=== PATIENT | female | born 1950 | race Hispanic/Latino ===

== ENCOUNTER → 2018-10-03 | Outpatient (CLI) | payer OTHER | END | disposition home or self-care (01) | LOC: RAH 08:15 | PROVIDERS: ATTEND Family Medicine | DX: Z12.31 Encounter for screening mammogram for malignant neoplasm of breast (principal); Z87.891 Personal history of nicotine dependence | CPT/HCPCS: 77067 ==

== ENCOUNTER → 2019-10-07 | Outpatient (CLI) | payer OTHER | END | disposition home or self-care (01) | LOC: RAH 14:05 | PROVIDERS: ATTEND Family Medicine | DX: Z12.31 Encounter for screening mammogram for malignant neoplasm of breast (principal) | CPT/HCPCS: 77067 ==

== ENCOUNTER → 2020-11-09 | Outpatient (CLI) | payer OTHER | END | disposition home or self-care (01) | LOC: RAH 15:34 | PROVIDERS: ATTEND Family Medicine | DX: Z12.31 Encounter for screening mammogram for malignant neoplasm of breast (principal); N64.89 Other specified disorders of breast | CPT/HCPCS: 77067 ==

== ENCOUNTER 2020-12-20 05:45 | Inpatient (IN) | payer OTHER ==
[~2020-12-20] VITALS: Ht 162.6 cm; Wt 104.8 kg
[2020-12-20 06:10] LABS: BASOPHILS % (AUTO) 0.4 % (0.0-5.0); EOSINOPHILS % (AUTO) 0.9 % (0.0-8.0); HEMATOCRIT 40.5 % (36-48); LYMPHOCYTES % (AUTO) 20.8 % (21.0-51.0); MEAN CORPUSCULAR HEMOGLOBIN 28.8 pg (27.0-33.0); MEAN CORPUSCULAR HGB CONC 32.1 g/dL (32.0-36.0); MEAN CORPUSCULAR VOLUME 89.8 fL (79-99); MONOCYTES % (AUTO) 7.9 % (3.0-13.0); NEUTROPHILS % (AUTO) 69.7 % (40.0-77.0); PLATELET COUNT (AUTO) 227 K/uL (130-400); RED BLOOD CELL COUNT(AUTO) 4.51 MIL/uL (4.00-5.50); RED CELL DISTRIBUTION WIDTH 13.8 % (11.0-15.5); WHITE BLOOD COUNT (AUTO) 10.5 K/uL (4.8-10.8)
[2020-12-20 06:11] LABS: APPEARANCE,URINE Clear (CLEAR); BILIRUBIN,URINE Negative (NEGATIVE); COLOR,URINE Yellow (YELLOW); GLUCOSE, URINE (UA) >=1000 mg/dL (NEGATIVE); KETONES,URINE Negative (NEGATIVE); LEUKOCYTE ESTERASE ,URINE Negative (NEGATIVE); NITRATE,URINE Negative (NEGATIVE); OCCULT BLOOD,URINE Negative (NEGATIVE); PROTEIN,URINE POS 1+ mg/dL (NEGATIVE); UROBILINOGEN,URINE 0.2 mg/dL (0.2-1.0)
[2020-12-20 06:12] LABS: BACTERIA,URINE None Seen /HPF (None Seen); RBC,URINE None Seen /HPF (0-1); SQUAMOUS EPITHELIAL CELL,UR Moderate /HPF (0-2); WBC,URINE 0-1 /HPF (0-1)
[2020-12-20 06:13] LABS: MUCUS,URINE Few LPF (None Seen)
[2020-12-20 06:37] LABS: ALBUMIN 4.5 g/dL (3.5-5.0); BILIRUBIN,TOTAL 0.7 mg/dL (0.2-1.0); CREATININE 1.1 mg/dL (0.5-1.5); TOTAL PROTEIN, SERUM 8.9 g/dL (6.0-8.3)
[2020-12-20] MEDS ORDERED: GLUCAGON 1MG KIT 1 MG ML IM PRN (08:15)
[2020-12-20] MEDS ORDERED: LIDOCAINE HCL-MPF 1% 2ML VIAL IV PRN ×2 (08:15)
[2020-12-20] MEDS ORDERED: DEXTROSE 50%-WATER 50 ML DISP.SYRIN IV PRN (08:15)
[2020-12-20] MEDS ORDERED: ACETAMINOPHEN 325 MG TAB PO PRN (08:15)
[2020-12-20] MEDS ORDERED: MAGNESIUM 2GM PREMIX 50ML 50 ML IV PRN (08:15)
[2020-12-20] MEDS ORDERED: POTASSIUM CHLORIDE 10% ELIXIR 20 MEQ/15 ML UDCUP PO PRN (08:15)
[2020-12-20] MEDS ORDERED: ONDANSETRON HCL 4 MG/2 ML VIAL IVP PRN (08:15)
[2020-12-20] MEDS ORDERED: POTASSIUM CHLORIDE 20MEQ/100ML 100 ML IV PRN ×2 (08:15)
[2020-12-20] MEDS ORDERED: PANTOPRAZOLE SODIUM 40 MG TABLET.DR ONE (08:37)
[2020-12-20] MEDS ORDERED: ASPIRIN 81MG TAB.CHEW ONE (08:38)
[2020-12-20] MEDS ORDERED: ENOXAPARIN SODIUM 40 MG/0.4 ML SYRINGE SQ ONE (08:38)
[2020-12-20] MEDS ORDERED: NITROGLYCERIN 1GM/1 INCH PACKET TD ONE ×2 (08:39→16:41)
[2020-12-20 08:51] LABS: HEMOGLOBIN A1C 7.7 % (4.0-6.0)
[2020-12-20 08:58] LABS: THYROID STIMULATING HORMONE 2.47 uIU/mL (0.36-3.74)
[2020-12-20 10:34] LABS: INR 1.04 (0.85-1.15); PROTHROMBIN TIME 11.3 SEC (9.6-11.6)
[2020-12-20 11:39] LABS: APPEARANCE,URINE Clear (CLEAR); BILIRUBIN,URINE Negative (NEGATIVE); COLOR,URINE Yellow (YELLOW); GLUCOSE, URINE (UA) >=1000 mg/dL (NEGATIVE); KETONES,URINE Negative (NEGATIVE); LEUKOCYTE ESTERASE ,URINE Negative (NEGATIVE); NITRATE,URINE Negative (NEGATIVE); OCCULT BLOOD,URINE Negative (NEGATIVE); PROTEIN,URINE POS 1+ mg/dL (NEGATIVE)
[2020-12-20 11:48] LABS: BACTERIA,URINE Few /HPF (None Seen); RBC,URINE 0-1 /HPF (0-1); WBC,URINE None Seen /HPF (0-1)
[2020-12-20 11:49] LABS: SQUAMOUS EPITHELIAL CELL,UR Few /HPF (0-2); YEAST,URINE BUDDING Rare /HPF (None Seen)
[2020-12-20] MEDS ORDERED: IOHEXOL-350 75 ML VIAL IV ONE (16:00)
[2020-12-20] MEDS ORDERED: SODIUM CHLORIDE 0.9% 1000ML 1,000 ML IV ONE (18:17)
[2020-12-20 23:14] VITALS: BP 156/61
[2020-12-20] MEDS ORDERED: NITR0.4T50 SL (23:37)
[2020-12-20] MEDS ORDERED: AMLODIPINE PO (23:37)
[2020-12-20] MEDS ORDERED: [UNRECOGNIZED DRUG - OTHER] PO (23:37)
[2020-12-20] MEDS ORDERED: CLON1PAT14 TD (23:37)
[2020-12-20] MEDS ORDERED: INSU100I26 SQ (23:37)
[2020-12-20] MEDS ORDERED: DULA1.5P SQ (23:37)
[2020-12-20] MEDS ORDERED: HYDR100T27 PO (23:37)
[2020-12-20] MEDS ORDERED: CLON0.1T PO (23:37)
[2020-12-20] MEDS ORDERED: METO-409 PO (23:37)
[2020-12-20] MEDS ORDERED: EMPA1TAB9 PO (23:37)
[2020-12-21] MEDS: LOSARTAN 50 MG TABLET PO SCH ×2 (00:15→08:17)
[2020-12-21] MEDS: NITROGLYCERIN 1GM/1 INCH PACKET TD SCH ×2 (00:55→08:18)
[2020-12-21] MEDS: SODIUM CHLORIDE 0.9% 1000ML 1,000 ML IV SCH ×2 (00:56→11:50)
[2020-12-21 03:59] VITALS: BP 148/57
[2020-12-21 04:56] LABS: POTASSIUM 3.7 mmol/L (3.5-5.1)
[2020-12-21] MEDS: INSULIN HUMULIN R 100 UNIT/ML 3ML SQ SCH ×4 (06:48→20:32)
[2020-12-21] MEDS: ISOSORBIDE MONO 30MG TAB SR PO SCH (08:17)
[2020-12-21] MEDS: ASPIRIN 81 MG EC TAB PO SCH ×2 (08:17→09:01)
[2020-12-21] MEDS: PANTOPRAZOLE SODIUM 40 MG TABLET.DR PO SCH ×2 (08:17→09:01)
[2020-12-21] MEDS: NIFEDIPINE ER 30 MG TAB PO SCH (08:18)
[2020-12-21] MEDS: ENOXAPARIN SODIUM 40 MG/0.4 ML SYRINGE SQ SCH ×2 (08:19→09:01)
[2020-12-21] MEDS ORDERED: METOPROLOL SUCCINATE 50 MG TAB.SR.24H PO SCH (09:00)
[2020-12-21] MEDS ORDERED: HYDROCHLOROTHIAZIDE 25 MG TABLET PO SCH (09:15)
[2020-12-21] MEDS ORDERED: CLONIDINE 0.3 MG/ 24 HR PATCH TD SCH (09:15)
[2020-12-21 09:23] VITALS: BP 167/60
[2020-12-21] MEDS: LISINOPRIL 40 MG TABLET PO SCH (09:37)
[2020-12-21] MEDS: AMLODIPINE BESYLATE 5 MG TAB PO SCH (09:37)
[2020-12-21] MEDS: CLOPIDOGREL BISULFATE 75 MG TAB PO SCH (09:38)
[2020-12-21 12:04] VITALS: BP 176/69
[2020-12-21 16:29] VITALS: BP 141/41
[2020-12-21] MEDS: ATORVASTATIN CALCIUM 20 MG TABLET PO SCH (20:32)
[2020-12-21 20:40] VITALS: BP 178/61
[2020-12-22] VITALS (8 sets, daily range): BP systolic 142–190; BP diastolic 58–80
[2020-12-22] MEDS ORDERED: HYDRALAZINE HCL 20 MG/ML VIAL IV SCH (01:30)
[2020-12-22] MEDS ORDERED: HYDRALAZINE HCL 20 MG/ML VIAL ONE (01:35)
[2020-12-22 03:48] LABS: BASOPHILS % (AUTO) 0.3 % (0.0-5.0); EOSINOPHILS % (AUTO) 1.4 % (0.0-8.0); HEMATOCRIT 36.8 % (36-48); MEAN CORPUSCULAR HEMOGLOBIN 29.2 pg (27.0-33.0); MEAN CORPUSCULAR HGB CONC 32.6 g/dL (32.0-36.0); MEAN CORPUSCULAR VOLUME 89.5 fL (79-99); MONOCYTES % (AUTO) 7.1 % (3.0-13.0); PLATELET COUNT (AUTO) 150 K/uL (130-400); RED BLOOD CELL COUNT(AUTO) 4.11 MIL/uL (4.00-5.50); RED CELL DISTRIBUTION WIDTH 13.7 % (11.0-15.5); WHITE BLOOD COUNT (AUTO) 6.5 K/uL (4.8-10.8)
[2020-12-22 04:08] LABS: CREATININE 1.2 mg/dL (0.5-1.5); POTASSIUM 3.8 mmol/L (3.5-5.1)
[2020-12-22] MEDS: INSULIN HUMULIN R 100 UNIT/ML 3ML SQ SCH ×4 (05:59→20:58)
[2020-12-22] MEDS: POTASSIUM CHLORIDE 20 MEQ ERTAB PO PRN ×2 (06:00→08:55)
[2020-12-22] MEDS: ENOXAPARIN SODIUM 40 MG/0.4 ML SYRINGE SQ SCH (08:54)
[2020-12-22] MEDS: PANTOPRAZOLE SODIUM 40 MG TABLET.DR PO SCH (08:55)
[2020-12-22] MEDS: ASPIRIN 81 MG EC TAB PO SCH (08:55)
[2020-12-22] MEDS: NIFEDIPINE ER 30 MG TAB PO SCH (08:55)
[2020-12-22] MEDS: LISINOPRIL 40 MG TABLET PO SCH (08:55)
[2020-12-22] MEDS: CLOPIDOGREL BISULFATE 75 MG TAB PO SCH (08:56)
[2020-12-22] MEDS: HYDROCHLOROTHIAZIDE 25 MG TABLET PO SCH (08:56)
[2020-12-22] MEDS: CARVEDILOL 6.25 MG TABLET PO SCH ×2 (08:57→20:16)
[2020-12-22] MEDS: AMLODIPINE BESYLATE 5 MG TAB PO SCH (08:57)
[2020-12-22] MEDS: ISOSORBIDE MONO 30MG TAB SR PO SCH (08:57)
[2020-12-22] MEDS ORDERED: ISOSORBIDE MONO 30MG TAB SR PO SCH (11:30)
[2020-12-22] MEDS: HYDRALAZINE HCL 25 MG TABLET PO SCH ×2 (13:31→20:16)
[2020-12-22] MEDS: ATORVASTATIN CALCIUM 20 MG TABLET PO SCH (20:15)
[2020-12-23 04:19] VITALS: BP 142/64
[2020-12-23] MEDS: INSULIN HUMULIN R 100 UNIT/ML 3ML SQ SCH ×2 (06:33→11:39)
[2020-12-23 06:39] LABS: MEAN CORPUSCULAR HEMOGLOBIN 28.1 pg (27.0-33.0); MEAN CORPUSCULAR HGB CONC 32.3 g/dL (32.0-36.0); MEAN CORPUSCULAR VOLUME 87.1 fL (79-99); PLATELET COUNT (AUTO) 149 K/uL (130-400); RED BLOOD CELL COUNT(AUTO) 4.02 MIL/uL (4.00-5.50); RED CELL DISTRIBUTION WIDTH 13.5 % (11.0-15.5); WHITE BLOOD COUNT (AUTO) 5.8 K/uL (4.8-10.8)
[2020-12-23 06:49] LABS: CREATININE 1.1 mg/dL (0.5-1.5)
[2020-12-23 08:00] VITALS: BP 160/68
[2020-12-23 08:14] LABS: EOSINOPHILS % (MANUAL) 3 % (1-6); LYMPHOCYTES % (MANUAL) 39 % (22-44); MAN.DIFF COMMENT-IMPRESSION MANUAL DIFFERENTIAL; MONOCYTES % (MANUAL) 11 % (2-9); PLATELET MORPHOLOGY COMMENT ADEQUATE; SEGMENTED NEUTROPHILS % 47 % (40-70)
[2020-12-23] MEDS ORDERED: ISOSORBIDE MONO 60 MG TAB.SR PO SCH (09:00)
[2020-12-23] MEDS: PANTOPRAZOLE SODIUM 40 MG TABLET.DR PO SCH (09:07)
[2020-12-23] MEDS: HYDRALAZINE HCL 25 MG TABLET PO SCH (09:07)
[2020-12-23] MEDS: HYDROCHLOROTHIAZIDE 25 MG TABLET PO SCH (09:07)
[2020-12-23] MEDS: LISINOPRIL 40 MG TABLET PO SCH (09:07)
[2020-12-23] MEDS: ASPIRIN 81 MG EC TAB PO SCH (09:07)
[2020-12-23] MEDS: ENOXAPARIN SODIUM 40 MG/0.4 ML SYRINGE SQ SCH (09:08)
[2020-12-23] MEDS: CLOPIDOGREL BISULFATE 75 MG TAB PO SCH (09:08)
[2020-12-23] MEDS: AMLODIPINE BESYLATE 5 MG TAB PO SCH (09:08)
[2020-12-23] MEDS ORDERED: CLOP75TA14 PO (11:04)
[2020-12-23] MEDS ORDERED: AMLO5TAB4 PO (11:04)
[2020-12-23] MEDS ORDERED: CARV6.2579 PO (11:04)
[2020-12-23] MEDS ORDERED: AEC81 PO (11:04)
[2020-12-23] MEDS ORDERED: Isosorbide Mono 60 Mg Tab.sr PO (11:04)
[2020-12-23] MEDS ORDERED: HYDR25 PO (11:04)
[2020-12-23] MEDS ORDERED: LISI40TA9 PO (11:04)
[2020-12-23] MEDS ORDERED: ATOR20TA65 PO (11:04)
[2020-12-23] MEDS ORDERED: HYDR25TA PO (11:04)
[2020-12-23 11:53] VITALS: BP 116/49
[2020-12-23] MEDS ORDERED: CARVEDILOL 6.25 MG TABLET PO SCH (21:00)
[2020-12-24] MEDS ORDERED: ISOSORBIDE MONO 60 MG TAB.SR PO SCH (09:00)
== END 2020-12-23 13:55 | disposition home or self-care (01) | DRG 311 ==
LOC: EDH 05:45 → EDHIP 08:05 → OBSVTOIN 08:05 → 4CH 22:07
PROVIDERS: ADMIT Internal Medicine Pulmonary Disease; ATTEND Internal Medicine Pulmonary Disease
PROC: 4B02XSZ Measurement of Cardiac Pacemaker, External Approach (ICD-10-PCS; principal; 2020-12-21)
DX: I24.9 Acute ischemic heart disease, unspecified (principal); I44.2 Atrioventricular block, complete; Z68.39 Body mass index [BMI] 39.0-39.9, adult; E66.9 Obesity, unspecified; I65.29 Occlusion and stenosis of unspecified carotid artery; G47.33 Obstructive sleep apnea (adult) (pediatric); E78.5 Hyperlipidemia, unspecified; I49.5 Sick sinus syndrome; I25.10 Atherosclerotic heart disease of native coronary artery without angina pectoris; E11.9 Type 2 diabetes mellitus without complications; I10 Essential (primary) hypertension; Z20.822 Contact with and (suspected) exposure to COVID-19; Z79.02 Long term (current) use of antithrombotics/antiplatelets; Z79.4 Long term (current) use of insulin; Z79.82 Long term (current) use of aspirin; Z79.899 Other long term (current) drug therapy; Z95.5 Presence of coronary angioplasty implant and graft; Z95.0 Presence of cardiac pacemaker; Z90.49 Acquired absence of other specified parts of digestive tract; Z90.711 Acquired absence of uterus with remaining cervical stump; Z83.3 Family history of diabetes mellitus; Z82.49 Family history of ischemic heart disease and other diseases of the circulatory system
CPT/HCPCS: 36415; 71045; 71275; 80048; 80053; 80061; 81001; 82948; 83036; 83880; 84443; 84484; 85025; 85378; 85610; 87426; 93005; 93306; 93356; 93970; G0378; J0360; J1650; J1815; J7030; Q9967; U0003

== ENCOUNTER → 2021-08-12 | Outpatient (CLI) | payer OTHER ==
[~2021-08-12] MED LIST: AEC81 PO; AMLO5TAB4 PO; CARV6.2579 PO; CLON0.1T PO; CLON1PAT14 TD; CLOP75TA14 PO; DULA1.5P SQ; EMPA1TAB9 PO; HYDR25 PO; HYDR25TA PO; INSU100I26 SQ; Isosorbide Mono 60 Mg Tab.sr PO; LISI40TA9 PO; METO-409 PO; NITR0.4T50 SL
== END | disposition home or self-care (01) ==
LOC: SHCH 13:57
PROVIDERS: ATTEND Internal Medicine Cardiovascular Disease
DX: I65.23 Occlusion and stenosis of bilateral carotid arteries (principal)
CPT/HCPCS: 93880

== ENCOUNTER → 2021-11-10 | Outpatient (CLI) | payer OTHER | END | disposition home or self-care (01) | LOC: RAH 14:14 | PROVIDERS: ATTEND Family Medicine | DX: Z12.31 Encounter for screening mammogram for malignant neoplasm of breast (principal) | CPT/HCPCS: 77067 ==

== ENCOUNTER → 2022-12-06 | Outpatient (CLI) | payer OTHER ==
[~2022-12-06] MED LIST changes: +CLOP-31 PO; -CLOP75TA14 PO
== END | disposition home or self-care (01) ==
LOC: RAH 15:50
PROVIDERS: ATTEND Family Medicine
DX: Z12.31 Encounter for screening mammogram for malignant neoplasm of breast (principal)
CPT/HCPCS: 77067

== ENCOUNTER 2023-01-14 12:25 | Emergency (ER) | payer OTHER ==
[~2023-01-14] VITALS: Ht 157.5 cm; Wt 107.0 kg
[2023-01-14 12:26] VITALS: BP 154/52
[2023-01-14 12:53] LABS: BASOPHILS % (AUTO) 0.5 % (0.0-5.0); HEMATOCRIT 39.5 % (36-48); LYMPHOCYTES % (AUTO) 23.3 % (21.0-51.0); MEAN CORPUSCULAR HEMOGLOBIN 28.7 pg (27.0-33.0); MEAN CORPUSCULAR HGB CONC 31.9 g/dL (32.0-36.0); MONOCYTES % (AUTO) 8.1 % (3.0-13.0); NEUTROPHILS % (AUTO) 66.9 % (40.0-77.0); PLATELET COUNT (AUTO) 231 K/uL (130-400); RED BLOOD CELL COUNT(AUTO) 4.39 MIL/uL (4.00-5.50); RED CELL DISTRIBUTION WIDTH 13.7 % (11.0-15.5); WHITE BLOOD COUNT (AUTO) 8.1 K/uL (4.8-10.8)
[2023-01-14 12:54] LABS: APPEARANCE,URINE CLEAR (CLEAR); BILIRUBIN,URINE NEGATIVE (NEGATIVE); COLOR,URINE LIGHT-YELLOW (YELLOW); GLUCOSE, URINE (UA) >=1000 mg/dL (NEGATIVE); KETONES,URINE NEGATIVE (NEGATIVE); LEUKOCYTE ESTERASE ,URINE NEGATIVE Leu/uL (NEGATIVE); NITRATE,URINE NEGATIVE (NEGATIVE); OCCULT BLOOD,URINE NEGATIVE (NEGATIVE); PROTEIN,URINE NEGATIVE (NEGATIVE); UROBILINOGEN,URINE 0.2 mg/dL (0.2-1.0)
[2023-01-14 12:56] LABS: BACTERIA,URINE MOD /HPF (None Seen); MUCUS,URINE RARE LPF (None Seen); RBC,URINE 0-1 /HPF (0-1); SQUAMOUS EPITHELIAL CELL,UR RARE /HPF (0-2); WBC,URINE 0-1 /HPF (0-1)
[2023-01-14 13:09] LABS: CREATININE 1.1 mg/dL (0.5-1.5); POTASSIUM 4.2 mmol/L (3.5-5.1)
[2023-01-14 13:14] LABS: ALBUMIN 4.3 g/dL (3.5-5.0); TOTAL PROTEIN, SERUM 8.1 g/dL (6.0-8.3)
[2023-01-14] MEDS ORDERED: ONDANSETRON 4MG INJ IVP ONE (13:30)
[2023-01-14] MEDS ORDERED: MORPHINE 4 MG SYG IVP ONE (13:30)
[2023-01-14] MEDS ORDERED: 0.9%NACL 1000ML 1,000 ML IV ONE (13:30)
== END 2023-01-14 15:05 | disposition home or self-care (01) ==
LOC: EDH 12:25
DX: K59.00 Constipation, unspecified (principal); R11.0 Nausea; I10 Essential (primary) hypertension; E78.00 Pure hypercholesterolemia, unspecified; E11.9 Type 2 diabetes mellitus without complications; Z79.899 Other long term (current) drug therapy; Z90.710 Acquired absence of both cervix and uterus; Z90.89 Acquired absence of other organs; Z90.49 Acquired absence of other specified parts of digestive tract
CPT/HCPCS: 99285; 74176; 96374; 96361; 96375; 84484; 80053; 85025; 83605; 81001; 36415; 93005; J7030; J2405; J2270

== ENCOUNTER 2023-07-17 12:59 | Emergency (ER) | payer OTHER ==
[~2023-07-17] VITALS: Ht 157.5 cm; Wt 106.6 kg
[2023-07-17 14:32] LABS: BASOPHILS # (AUTO) 0.03 K/uL (0.00-0.20); BASOPHILS % (AUTO) 0.4 % (0.0-5.0); EOSINOPHILS % (AUTO) 1.2 % (0.0-8.0); HEMATOCRIT 37.4 % (36-48); IMMATURE GRANULOCYTE ABSOLUTE 0.03 K/uL (0-1); LYMPHOCYTES # (AUTO) 1.4 K/uL (1.0-4.8); LYMPHOCYTES % (AUTO) 16.7 % (21.0-51.0); MEAN CORPUSCULAR HEMOGLOBIN 29.1 pg (27.0-33.0); MEAN CORPUSCULAR HGB CONC 32.1 g/dL (32.0-36.0); MEAN CORPUSCULAR VOLUME 90.8 fL (79-99); MONOCYTES # (AUTO) 0.6 K/uL (0.1-1.0); MONOCYTES % (AUTO) 7.4 % (3.0-13.0); NEUTROPHILS # (AUTO) 6.3 K/uL (1.8-7.7); NEUTROPHILS % (AUTO) 73.9 % (40.0-77.0); PLATELET COUNT (AUTO) 220 K/uL (130-400); RED BLOOD CELL COUNT(AUTO) 4.12 MIL/uL (4.00-5.50); RED CELL DISTRIBUTION WIDTH 14.5 % (11.0-15.5); WHITE BLOOD COUNT (AUTO) 8.6 K/uL (4.8-10.8)
[2023-07-17 14:56] LABS: ALBUMIN 3.9 g/dL (3.5-5.0); BILIRUBIN,TOTAL 0.8 mg/dL (0.2-1.0); CREATININE 1.1 mg/dL (0.5-1.5); POTASSIUM 4.3 mmol/L (3.5-5.1); TOTAL PROTEIN, SERUM 7.8 g/dL (6.0-8.3)
[2023-07-17] MEDS ORDERED: ONDANSETRON 4MG INJ IVP ONE (16:30)
[2023-07-17] MEDS ORDERED: MORPHINE 2 MG SYG IVP ONE (16:30)
[2023-07-17 16:54] VITALS: BP 165/70; PULSE 72; RESP 16; O2SAT 98
== END 2023-07-17 20:37 | disposition home or self-care (01) ==
LOC: EDH 12:59
DX: M54.6 Pain in thoracic spine (principal); E11.9 Type 2 diabetes mellitus without complications; E78.00 Pure hypercholesterolemia, unspecified; I11.9 Hypertensive heart disease without heart failure; Z79.02 Long term (current) use of antithrombotics/antiplatelets; Z79.4 Long term (current) use of insulin; Z79.82 Long term (current) use of aspirin; Z79.84 Long term (current) use of oral hypoglycemic drugs; Z79.899 Other long term (current) drug therapy; Z90.49 Acquired absence of other specified parts of digestive tract; Z95.5 Presence of coronary angioplasty implant and graft; Z95.810 Presence of automatic (implantable) cardiac defibrillator
CPT/HCPCS: 99285; 96374; 71045; 96375; 84484; 80053; 85025; 36415; 93005; J2270; J2405

== ENCOUNTER → 2023-09-06 | Outpatient (CLI) | payer OTHER | END | disposition home or self-care (01) | LOC: SHCH 09:23 | PROVIDERS: ATTEND Internal Medicine Cardiovascular Disease | DX: I87.2 Venous insufficiency (chronic) (peripheral) (principal) | CPT/HCPCS: 93970 ==

== ENCOUNTER 2023-10-13 23:42 | Emergency (ER) | payer OTHER ==
[~2023-10-13] VITALS: Ht 154.9 cm; Wt 110.7 kg
[2023-10-14 00:08] LABS: BASOPHILS # (AUTO) 0.02 K/uL (0.00-0.20); BASOPHILS % (AUTO) 0.3 % (0.0-5.0); EOSINOPHILS % (AUTO) 1.3 % (0.0-8.0); HEMATOCRIT 32.8 % (36-48); IMMATURE GRANULOCYTE ABSOLUTE 0.02 K/uL (0-1); LYMPHOCYTES # (AUTO) 1.5 K/uL (1.0-4.8); LYMPHOCYTES % (AUTO) 18.9 % (21.0-51.0); MEAN CORPUSCULAR HEMOGLOBIN 28.7 pg (27.0-33.0); MEAN CORPUSCULAR HGB CONC 32.6 g/dL (32.0-36.0); MEAN CORPUSCULAR VOLUME 87.9 fL (79-99); MONOCYTES # (AUTO) 0.7 K/uL (0.1-1.0); MONOCYTES % (AUTO) 8.1 % (3.0-13.0); NEUTROPHILS # (AUTO) 5.7 K/uL (1.8-7.7); NEUTROPHILS % (AUTO) 71.1 % (40.0-77.0); PLATELET COUNT (AUTO) 232 K/uL (130-400); RED BLOOD CELL COUNT(AUTO) 3.73 MIL/uL (4.00-5.50); RED CELL DISTRIBUTION WIDTH 14.8 % (11.0-15.5)
[2023-10-14 00:11] LABS: APPEARANCE,URINE CLEAR (CLEAR); BILIRUBIN,URINE NEGATIVE (NEGATIVE); COLOR,URINE COLORLESS (YELLOW); GLUCOSE, URINE (UA) NEGATIVE (NEGATIVE); KETONES,URINE NEGATIVE (NEGATIVE); LEUKOCYTE ESTERASE ,URINE NEGATIVE Leu/uL (NEGATIVE); NITRATE,URINE NEGATIVE (NEGATIVE); OCCULT BLOOD,URINE NEGATIVE (NEGATIVE); PH,URINE 5.5 (5.0-8.0); PROTEIN,URINE 10 mg/dL (NEGATIVE); UROBILINOGEN,URINE 0.2 mg/dL (0.2-1.0)
[2023-10-14 00:13] LABS: ADD UA MICROSCOPIC NO
[2023-10-14 00:14] LABS: BACTERIA,URINE RARE /HPF (None Seen); RBC,URINE 0-1 /HPF (0-1); SQUAMOUS EPITHELIAL CELL,UR RARE /HPF (0-2)
[2023-10-14] MEDS ORDERED: MULT-1367 PO (00:16)
[2023-10-14] MEDS ORDERED: AEC81 PO (00:16)
[2023-10-14] MEDS ORDERED: TIRZ2.5P SQ ×2 (00:16)
[2023-10-14] MEDS ORDERED: CLOP75TA32 PO (00:16)
[2023-10-14] MEDS ORDERED: VITA400T9 PO (00:16)
[2023-10-14] MEDS ORDERED: CLON0.2T PO (00:16)
[2023-10-14] MEDS ORDERED: ISOS30TA92 PO (00:16)
[2023-10-14] MEDS ORDERED: AMLO-257 PO (00:16)
[2023-10-14] MEDS ORDERED: LOSA100T59 PO (00:16)
[2023-10-14] MEDS ORDERED: ATOR40TA69 PO (00:16)
[2023-10-14] MEDS ORDERED: HYDR25TA PO (00:16)
[2023-10-14] MEDS ORDERED: VITAMIN D PO (00:16)
[2023-10-14] MEDS ORDERED: HYDR100T27 PO (00:16)
[2023-10-14 00:17] LABS: CREATININE 1.4 mg/dL (0.5-1.5); POTASSIUM 3.8 mmol/L (3.5-5.1)
[2023-10-14 00:19] LABS: INR 1.07 (0.85-1.15); PROTHROMBIN TIME 12.4 SEC (9.6-11.6)
[2023-10-14 00:20] LABS: PARTIAL THROMBOPLASTIN TIME 33.8 SEC (26.3-35.5)
[2023-10-14 00:27] LABS: ALBUMIN 3.9 g/dL (3.5-5.0); BILIRUBIN,TOTAL 1.1 mg/dL (0.2-1.0); TOTAL PROTEIN, SERUM 8.1 g/dL (6.0-8.3)
[2023-10-14] MEDS: FUROSEMIDE 100MG VIAL IVP ONE (00:31)
[2023-10-14 00:46] LABS: B-TYPE NATRIURETIC PEPTIDE 204 pg/mL (0-100)
[2023-10-14 02:56] VITALS: BP 162/65; PULSE 75; RESP 18; O2SAT 98
== END 2023-10-14 02:57 | disposition home or self-care (01) ==
LOC: EDH 23:42
DX: I83.93 Asymptomatic varicose veins of bilateral lower extremities (principal); R06.00 Dyspnea, unspecified; E78.00 Pure hypercholesterolemia, unspecified; I10 Essential (primary) hypertension; E11.9 Type 2 diabetes mellitus without complications; Z79.02 Long term (current) use of antithrombotics/antiplatelets; Z79.4 Long term (current) use of insulin; Z79.82 Long term (current) use of aspirin; Z79.84 Long term (current) use of oral hypoglycemic drugs; Z79.899 Other long term (current) drug therapy; Z90.710 Acquired absence of both cervix and uterus; Z95.5 Presence of coronary angioplasty implant and graft; Z90.49 Acquired absence of other specified parts of digestive tract; Z95.810 Presence of automatic (implantable) cardiac defibrillator
CPT/HCPCS: 99285; 71045; 84443; 82550; 83735; 84484; 80053; 83880; 85025; 85610; 85730; 84481; 81003; 81001; 36415; 93005; 96374; J1940

== ENCOUNTER → 2023-11-15 | Outpatient (CLI) | payer OTHER ==
[~2023-11-15] MED LIST changes: +AMLO-257 PO; -AMLO5TAB4 PO; +ATOR40TA69 PO; -CARV6.2579 PO; -CLON0.1T PO; +CLON0.2T PO; -CLON1PAT14 TD; -CLOP-31 PO; +CLOP75TA32 PO; -DULA1.5P SQ; -EMPA1TAB9 PO; +HYDR100T27 PO; -HYDR25 PO; +ISOS30TA92 PO; -Isosorbide Mono 60 Mg Tab.sr PO; -LISI40TA9 PO; +LOSA100T59 PO; +MULT-1367 PO; +TIRZ2.5P SQ; +VITA400T9 PO; +VITAMIN D PO
[2023-11-15 16:18] LABS: BASOPHILS # (AUTO) 0.03 K/uL (0.00-0.20); BASOPHILS % (AUTO) 0.4 % (0.0-5.0); EOSINOPHILS % (AUTO) 1.5 % (0.0-8.0); HEMATOCRIT 33.2 % (36-48); IMMATURE GRANULOCYTE ABSOLUTE 0.03 K/uL (0-1); LYMPHOCYTES # (AUTO) 1.3 K/uL (1.0-4.8); MEAN CORPUSCULAR HEMOGLOBIN 28.7 pg (27.0-33.0); MEAN CORPUSCULAR HGB CONC 30.7 g/dL (32.0-36.0); MEAN CORPUSCULAR VOLUME 93.5 fL (79-99); MONOCYTES # (AUTO) 0.6 K/uL (0.1-1.0); MONOCYTES % (AUTO) 9.1 % (3.0-13.0); NEUTROPHILS # (AUTO) 4.6 K/uL (1.8-7.7); NEUTROPHILS % (AUTO) 68.6 % (40.0-77.0); PLATELET COUNT (AUTO) 198 K/uL (130-400); RED BLOOD CELL COUNT(AUTO) 3.55 MIL/uL (4.00-5.50); RED CELL DISTRIBUTION WIDTH 14.5 % (11.0-15.5); WHITE BLOOD COUNT (AUTO) 6.7 K/uL (4.8-10.8)
[2023-11-15 16:29] LABS: ALBUMIN 3.9 g/dL (3.5-5.0); POTASSIUM 4.3 mmol/L (3.5-5.1); TOTAL PROTEIN, SERUM 7.8 g/dL (6.0-8.3)
[2023-11-15 16:44] LABS: B-TYPE NATRIURETIC PEPTIDE 182 pg/mL (0-100)
== END | disposition home or self-care (01) ==
LOC: LAB 11:32
PROVIDERS: ATTEND Physician Assistant
DX: I10 Essential (primary) hypertension (principal); I25.10 Atherosclerotic heart disease of native coronary artery without angina pectoris
CPT/HCPCS: 36415; 80053; 83735; 83880; 85025

== ENCOUNTER → 2023-12-22 | Outpatient (CLI) | payer OTHER | END | disposition home or self-care (01) | LOC: RAH 12:59 | PROVIDERS: ATTEND Family Medicine | DX: Z12.31 Encounter for screening mammogram for malignant neoplasm of breast (principal) | CPT/HCPCS: 77067 ==

== ENCOUNTER → 2023-12-25 | Outpatient (CLI) | payer OTHER | END | disposition home or self-care (01) | LOC: SHCH 14:45 | PROVIDERS: ATTEND Internal Medicine Cardiovascular Disease | DX: I08.2 Rheumatic disorders of both aortic and tricuspid valves (principal); I25.10 Atherosclerotic heart disease of native coronary artery without angina pectoris | CPT/HCPCS: 93306 ==

== ENCOUNTER → 2023-12-29 | Outpatient (CLI) | payer OTHER ==
[2023-12-29] MEDS: REGADENOSON 0.4 MG/5 ML PF SYG IVP ONE (11:15)
== END | disposition home or self-care (01) ==
LOC: SHCH 07:52
PROVIDERS: ATTEND Internal Medicine Cardiovascular Disease
DX: I44.0 Atrioventricular block, first degree (principal); I44.7 Left bundle-branch block, unspecified; I25.10 Atherosclerotic heart disease of native coronary artery without angina pectoris
CPT/HCPCS: 78452; 96374; 93017; J2785; A9500 ×2

== ENCOUNTER 2024-01-08 05:59 | Day surgery (SDC) | payer OTHER ==
[2024-01-05 13:21] LABS: BASOPHILS # (AUTO) 0.02 K/uL (0.00-0.20); BASOPHILS % (AUTO) 0.3 % (0.0-5.0); EOSINOPHILS # (AUTO) 0.07 K/uL (0.00-0.70); EOSINOPHILS % (AUTO) 1.1 % (0.0-8.0); HEMATOCRIT 34.6 % (36-48); IMMATURE GRANULOCYTE ABSOLUTE 0.02 K/uL (0-1); LYMPHOCYTES # (AUTO) 1.3 K/uL (1.0-4.8); LYMPHOCYTES % (AUTO) 19.4 % (21.0-51.0); MEAN CORPUSCULAR HGB CONC 32.1 g/dL (32.0-36.0); MEAN CORPUSCULAR VOLUME 90.3 fL (79-99); MONOCYTES # (AUTO) 0.6 K/uL (0.1-1.0); MONOCYTES % (AUTO) 8.9 % (3.0-13.0); NEUTROPHILS # (AUTO) 4.6 K/uL (1.8-7.7); PLATELET COUNT (AUTO) 204 K/uL (130-400); RED BLOOD CELL COUNT(AUTO) 3.83 MIL/uL (4.00-5.50); WHITE BLOOD COUNT (AUTO) 6.6 K/uL (4.8-10.8)
[2024-01-05 13:29] LABS: CREATININE 1.3 mg/dL (0.5-1.0); POTASSIUM 4.3 mmol/L (3.5-5.1)
[2024-01-05 13:31] LABS: INR 1.06 (0.85-1.15); PROTHROMBIN TIME 12.4 SEC (9.6-11.6)
[2024-01-05 13:32] LABS: PARTIAL THROMBOPLASTIN TIME 29.3 SEC (26.3-35.5)
[2024-01-05 13:40] LABS: APPEARANCE,URINE CLEAR (CLEAR); BILIRUBIN,URINE NEGATIVE (NEGATIVE); COLOR,URINE LIGHT-YELLOW (YELLOW); GLUCOSE, URINE (UA) NEGATIVE (NEGATIVE); KETONES,URINE NEGATIVE (NEGATIVE); LEUKOCYTE ESTERASE ,URINE 25 Leu/uL (NEGATIVE); NITRATE,URINE NEGATIVE (NEGATIVE); OCCULT BLOOD,URINE NEGATIVE (NEGATIVE); PH,URINE 6.5 (5.0-8.0); PROTEIN,URINE NEGATIVE (NEGATIVE); UROBILINOGEN,URINE 0.2 mg/dL (0.2-1.0)
[2024-01-05 13:42] LABS: ADD UA MICROSCOPIC YES
[2024-01-05 13:46] LABS: BACTERIA,URINE MANY /HPF (None Seen); SQUAMOUS EPITHELIAL CELL,UR RARE /HPF (0-2)
[2024-01-05 14:01] LABS: B-TYPE NATRIURETIC PEPTIDE 143 pg/mL (0-100)
[2024-01-05 14:05] VITALS: BP_SYST 173; BP_SYST 202; BP_SYST 203; BP_DIAS 67; BP_DIAS 77; BP_DIAS 78; PULSE 72; RESP 18
[2024-01-08] VITALS (12 sets, daily range): BP systolic 131–161; BP diastolic 52–64; PULSE 64–75; RESP 16–23
[~2024-01-08] VITALS: Ht 157.5 cm; Wt 114.2 kg
[~2024-01-08 05:59] MED LIST changes: +CHOL100040 PO; +FURO20TA4 PO; +HYDR100T15 PO; -HYDR100T27 PO; -NITR0.4T50 SL; +VITA-395 PO; -VITA400T9 PO; -VITAMIN D PO
[2024-01-08] MEDS: 0.9%NACL 1000ML 1,000 ML IV ONE (06:41)
[2024-01-08] MEDS ORDERED: IOHEXOL 350 MG/ML 100ML INFUS..BTL IV ONE (07:29)
[2024-01-08] MEDS ORDERED: LIDOCAINE HCL 400MG/20ML VIAL ONE (07:29)
[2024-01-08] MEDS ORDERED: FENTANYL CITRATE PF 50 MCG/1 ML 2ML VIAL ONE (07:29)
[2024-01-08] MEDS ORDERED: MIDAZOLAM HCL 1 MG/ML 2ML VIAL ONE ×2 (07:29→08:02)
[2024-01-08] MEDS ORDERED: HEPARIN 10,000 UNIT/10ML (1,000 UNIT/ML) VIAL ONE (07:30)
[2024-01-08] MEDS ORDERED: VERAPAMIL HCL 2.5 MG/ML VIAL ONE (07:30)
[2024-01-08] MEDS ORDERED: NITROGLYCERIN 50MG VIAL ONE (07:30)
[2024-01-08] MEDS ORDERED: IOHEXOL-350 50ML VIAL IV ONE ×2 (08:04→08:13)
[2024-01-08] MEDS ORDERED: GLUCAGON 1MG KIT 1 MG ML IM PRN (08:30)
[2024-01-08] MEDS ORDERED: DEXTROSE 50%-WATER 50 ML DISP.SYRIN IV PRN (08:30)
[2024-01-08] MEDS: 0.9%NACL 1000ML 1,000 ML IV SCH (08:45)
== END 2024-01-08 13:15 | disposition home or self-care (01) ==
LOC: DAH 05:59
PROVIDERS: ATTEND Student in an Organized Health Care Education/Training Program
DX: I25.119 Atherosclerotic heart disease of native coronary artery with unspecified angina pectoris (principal); I87.1 Compression of vein; I44.7 Left bundle-branch block, unspecified; Z79.899 Other long term (current) drug therapy; Z95.5 Presence of coronary angioplasty implant and graft; Z82.49 Family history of ischemic heart disease and other diseases of the circulatory system; Z87.891 Personal history of nicotine dependence; Z79.01 Long term (current) use of anticoagulants
CPT/HCPCS: 80048; 83880; 85025; 85610; 85730; 87077; 87088; 87186; 81001; 36415; 71045; 93005; 93458; 82948 ×2; C1769; C1894; A4649; J3010; J3490 ×3; J7030; J1644 ×2; J2250 ×2; Q9967 ×3; A4215; A4335; A4222; A6260; A4221; A4663; A4216; A6206; A4606; Q9965; A4223 ×3; A4554; 96360; 96361; 99156; 99157

== ENCOUNTER 2024-02-23 23:08 | Emergency (ER) | payer OTHER ==
[~2024-02-23] VITALS: Ht 157.5 cm; Wt 117.0 kg
[2024-02-23 23:53] LABS: BASOPHILS # (AUTO) 0.02 K/uL (0.00-0.20); BASOPHILS % (AUTO) 0.2 % (0.0-5.0); EOSINOPHILS # (AUTO) 0.13 K/uL (0.00-0.70); EOSINOPHILS % (AUTO) 1.5 % (0.0-8.0); HEMATOCRIT 32.3 % (36-48); IMMATURE GRANULOCYTE ABSOLUTE 0.02 K/uL (0-1); LYMPHOCYTES # (AUTO) 1.5 K/uL (1.0-4.8); LYMPHOCYTES % (AUTO) 16.8 % (21.0-51.0); MEAN CORPUSCULAR HEMOGLOBIN 28.5 pg (27.0-33.0); MEAN CORPUSCULAR HGB CONC 32.5 g/dL (32.0-36.0); MEAN CORPUSCULAR VOLUME 87.8 fL (79-99); MONOCYTES # (AUTO) 0.8 K/uL (0.1-1.0); MONOCYTES % (AUTO) 8.7 % (3.0-13.0); NEUTROPHILS # (AUTO) 6.4 K/uL (1.8-7.7); NEUTROPHILS % (AUTO) 72.6 % (40.0-77.0); PLATELET COUNT (AUTO) 246 K/uL (130-400); RED BLOOD CELL COUNT(AUTO) 3.68 MIL/uL (4.00-5.50); RED CELL DISTRIBUTION WIDTH 14.7 % (11.0-15.5); WHITE BLOOD COUNT (AUTO) 8.8 K/uL (4.8-10.8)
[2024-02-23 23:56] LABS: APPEARANCE,URINE CLEAR (CLEAR); BILIRUBIN,URINE NEGATIVE (NEGATIVE); COLOR,URINE LIGHT-YELLOW (YELLOW); GLUCOSE, URINE (UA) NEGATIVE (NEGATIVE); KETONES,URINE NEGATIVE (NEGATIVE); LEUKOCYTE ESTERASE ,URINE NEGATIVE Leu/uL (NEGATIVE); NITRATE,URINE NEGATIVE (NEGATIVE); OCCULT BLOOD,URINE NEGATIVE (NEGATIVE); PROTEIN,URINE 10 mg/dL (NEGATIVE); UROBILINOGEN,URINE 0.2 mg/dL (0.2-1.0)
[2024-02-23 23:59] LABS: ADD UA MICROSCOPIC YES
[2024-02-24] LABS: BACTERIA,URINE MOD /HPF (None Seen); RBC,URINE 0-1 /HPF (0-1); SQUAMOUS EPITHELIAL CELL,UR FEW /HPF (0-2)
[2024-02-24 00:35] LABS: CREATININE 1.6 mg/dL (0.5-1.0); POTASSIUM 4.8 mmol/L (3.5-5.1)
[2024-02-24 00:40] LABS: ALBUMIN 3.8 g/dL (3.5-5.0); TOTAL PROTEIN, SERUM 7.9 g/dL (6.0-8.3)
[2024-02-24] MEDS: LACTULOSE 20 GM/30 ML UDCUP PO ONE (02:01)
[2024-02-24] MEDS: MAGNESIUM CITRATE 296 ML SOLUTION PO ONE (02:01)
[2024-02-24] MEDS ORDERED: AZIT500T4 PO (04:05)
[2024-02-24 04:28] VITALS: BP 148/56; PULSE 60; RESP 18; O2SAT 96
== END 2024-02-24 04:53 | disposition home or self-care (01) ==
LOC: EDH 23:08
DX: K59.00 Constipation, unspecified (principal); J06.9 Acute upper respiratory infection, unspecified; I11.0 Hypertensive heart disease with heart failure; I50.9 Heart failure, unspecified; I25.10 Atherosclerotic heart disease of native coronary artery without angina pectoris; E11.9 Type 2 diabetes mellitus without complications; E78.00 Pure hypercholesterolemia, unspecified; Z90.711 Acquired absence of uterus with remaining cervical stump; Z90.89 Acquired absence of other organs; Z95.0 Presence of cardiac pacemaker; Z79.899 Other long term (current) drug therapy; Z79.4 Long term (current) use of insulin; Z79.82 Long term (current) use of aspirin
CPT/HCPCS: 36415; 71045; 74176; 80053; 81001; 83690; 84484; 85025; 93005

== ENCOUNTER 2024-03-04 22:01 | Inpatient (IN) | payer OTHER ==
[~2024-03-04] VITALS: Ht 157.5 cm; Wt 122.2 kg
[~2024-03-04 22:01] MED LIST changes: +AZIT500T4 PO
[2024-03-04 23:01] LABS: APPEARANCE,URINE CLEAR (CLEAR); BILIRUBIN,URINE NEGATIVE (NEGATIVE); GLUCOSE, URINE (UA) NEGATIVE (NEGATIVE); KETONES,URINE NEGATIVE (NEGATIVE); LEUKOCYTE ESTERASE ,URINE NEGATIVE Leu/uL (NEGATIVE); NITRATE,URINE NEGATIVE (NEGATIVE); OCCULT BLOOD,URINE NEGATIVE (NEGATIVE); PROTEIN,URINE NEGATIVE (NEGATIVE); UROBILINOGEN,URINE 0.2 mg/dL (0.2-1.0)
[2024-03-04 23:03] LABS: ADD UA MICROSCOPIC NO; COLOR,URINE YELLOW (YELLOW)
[2024-03-04 23:46] LABS: BASOPHILS # (AUTO) 0.02 K/uL (0.00-0.20); BASOPHILS % (AUTO) 0.3 % (0.0-5.0); EOSINOPHILS # (AUTO) 0.07 K/uL (0.00-0.70); EOSINOPHILS % (AUTO) 0.9 % (0.0-8.0); HEMATOCRIT 30.1 % (36-48); IMMATURE GRANULOCYTE ABSOLUTE 0.04 K/uL (0-1); LYMPHOCYTES % (AUTO) 13.9 % (21.0-51.0); MEAN CORPUSCULAR HEMOGLOBIN 29.3 pg (27.0-33.0); MEAN CORPUSCULAR HGB CONC 32.2 g/dL (32.0-36.0); MEAN CORPUSCULAR VOLUME 90.9 fL (79-99); MONOCYTES # (AUTO) 0.8 K/uL (0.1-1.0); MONOCYTES % (AUTO) 10.5 % (3.0-13.0); NEUTROPHILS # (AUTO) 5.5 K/uL (1.8-7.7); NEUTROPHILS % (AUTO) 73.9 % (40.0-77.0); PLATELET COUNT (AUTO) 218 K/uL (130-400); RED BLOOD CELL COUNT(AUTO) 3.31 MIL/uL (4.00-5.50); WHITE BLOOD COUNT (AUTO) 7.4 K/uL (4.8-10.8)
[2024-03-04 23:55] LABS: CREATININE 1.5 mg/dL (0.5-1.0); POTASSIUM 4.1 mmol/L (3.5-5.1)
[2024-03-05] LABS: ALBUMIN 3.6 g/dL (3.5-5.0); TOTAL PROTEIN, SERUM 7.4 g/dL (6.0-8.3)
[2024-03-05] MEDS ORDERED: FUROSEMIDE 20MG VIAL IV ONE
[2024-03-05 01:01] LABS: INR 1.19 (0.85-1.15); PROTHROMBIN TIME 12.7 SEC (9.6-11.6)
[2024-03-05 01:02] LABS: PARTIAL THROMBOPLASTIN TIME 31.2 SEC (26.3-35.5)
[2024-03-05] MEDS: FUROSEMIDE 40MG VIAL IV ONE (01:53)
[2024-03-05] MEDS ORDERED: ONDANSETRON 4MG INJ IVP PRN (03:00)
[2024-03-05] MEDS ORDERED: ACETAMINOPHEN 325 MG TAB PO PRN (03:00)
[2024-03-05] MEDS ORDERED: ACETAMINOPHEN 650 MG SUPPOSITORY RC PRN (03:00)
[2024-03-05] MEDS ORDERED: HYDRALAZINE 20MG/ML VIAL IV PRN (03:00)
[2024-03-05] MEDS ORDERED: TEMAZEPAM 15 MG CAPSULE PO PRN (03:00)
[2024-03-05 03:19] LABS: SARS-CoV-2, RNA, NAAT NEGATIVE SARS CoV-2 (NEGATIVE)
[2024-03-05] MEDS ORDERED: CLON0.2T PO (03:24)
[2024-03-05] MEDS ORDERED: ISOS30TA92 PO (03:24)
[2024-03-05] MEDS ORDERED: AMLO-257 PO (03:24)
[2024-03-05] MEDS ORDERED: NITR0.4T50 SL (03:24)
[2024-03-05] MEDS ORDERED: VITA-348 PO (03:24)
[2024-03-05] MEDS ORDERED: VITAMIN D PO (03:24)
[2024-03-05] MEDS ORDERED: LOSA100T59 PO (03:24)
[2024-03-05] MEDS ORDERED: HYDR25TA PO (03:24)
[2024-03-05] MEDS ORDERED: CLOP75TA32 PO (03:24)
[2024-03-05] MEDS ORDERED: METO-409 PO (03:24)
[2024-03-05] MEDS ORDERED: HYDR100T15 PO (03:24)
[2024-03-05] MEDS ORDERED: AEC81 PO (03:24)
[2024-03-05] MEDS ORDERED: MULT-1367 PO (03:24)
[2024-03-05] MEDS ORDERED: ATOR40TA71 PO (03:24)
[2024-03-05] MEDS ORDERED: INSU100I26 SQ (03:24)
[2024-03-05 03:25] LABS: INFLUENZA TYPE A Negative For Type A (NEGATIVE); INFLUENZA TYPE B Negative For Type B (NEGATIVE)
[2024-03-05] MEDS ORDERED: POTASSIUM CHLORIDE 10MEQ/100ML 100 ML IV PRN (03:30)
[2024-03-05] MEDS ORDERED: DEXTROSE 50%-WATER 50 ML DISP.SYRIN IV PRN (03:30)
[2024-03-05] MEDS ORDERED: GLUCAGON 1MG KIT 1 MG ML IM PRN (03:30)
[2024-03-05] MEDS ORDERED: NITROGLYCERIN 0.4 MG SL TAB SL PRN (04:00)
[2024-03-05] MEDS: FUROSEMIDE 40MG VIAL IV SCH (04:30)
[2024-03-05] MEDS: INSULIN HUMULIN R 100 UNIT/ML 3ML SQ SCH (07:30)
[2024-03-05 08:00] VITALS: BP 158/62; PULSE 57; RESP 18
[2024-03-05] MEDS ORDERED: NON-FORMULARY MEDICATION 1 EACH (Hydralazine HCl 100 MG) PO SCH (09:00)
[2024-03-05] MEDS ORDERED: NON-FORMULARY MEDICATION 1 EACH (Metoprolol Succinate 100 MG) PO SCH (09:00)
[2024-03-05] MEDS: PANTOPRAZOLE 40 MG/VIAL IVP SCH (09:00)
[2024-03-05] MEDS ORDERED: NON-FORMULARY MEDICATION 1 EACH (Multivitamin 1 EACH) PO SCH (09:00)
[2024-03-05] MEDS: Vitamin E 400 UNIT PO SCH (09:00)
[2024-03-05] MEDS: VITAMIN D 50 MCG PO SCH (09:00)
[2024-03-05] MEDS: ASPIRIN 81 MG EC TAB PO SCH (09:44)
[2024-03-05] MEDS: AMLODIPINE 5 MG TAB PO SCH (09:44)
[2024-03-05] MEDS: ENOXAPARIN SODIUM 30 MG/0.3 ML SQ SCH (09:44)
[2024-03-05] MEDS: ISOSORBIDE MONO 30MG SR TAB PO SCH (09:45)
[2024-03-05] MEDS: METOPROLOL SUCCINATE 50 MG TAB.SR.24H PO SCH (09:45)
[2024-03-05] MEDS: MULTIVITAMIN TABLET PO SCH (09:46)
[2024-03-05] MEDS: CLOPIDOGREL 75MG TAB PO SCH (09:46)
[2024-03-05] MEDS: HYDROCHLOROTHIAZIDE 25 MG TABLET PO SCH (09:46)
[2024-03-05] MEDS: CLONIDINE HCL 0.2 MG TABLET PO SCH (09:47)
[2024-03-05] MEDS: HYDRALAZINE 25MG TABLET PO SCH (09:47)
[2024-03-05] MEDS: LOSARTAN 100 MG TABLET PO SCH (09:47)
[2024-03-05] MEDS: DOCUSATE SODIUM 100 MG CAP PO PRN (09:48)
[2024-03-05 10:26] VITALS: O2SAT 97
[2024-03-05 11:02] VITALS: BP_SYST 147; BP_SYST 152; BP_DIAS 57; BP_DIAS 61; PULSE 60; PULSE 68; RESP 18
[2024-03-05 16:00] VITALS: BP 143/62; PULSE 60; RESP 18
[2024-03-05 22:45] VITALS: BP 177/80; PULSE 64; RESP 20; O2SAT 94
[2024-03-05] MEDS: ATORVASTATIN 40 MG TABLET PO SCH (23:32)
[2024-03-06] VITALS (9 sets, daily range): BP systolic 125–159; BP diastolic 50–66; PULSE 60–67; RESP 17–20; O2SAT 93
[2024-03-06 04:23] LABS: BASOPHILS # (AUTO) 0.02 K/uL (0.00-0.20); BASOPHILS % (AUTO) 0.3 % (0.0-5.0); EOSINOPHILS # (AUTO) 0.06 K/uL (0.00-0.70); HEMATOCRIT 28.6 % (36-48); IMMATURE GRANULOCYTE ABSOLUTE 0.02 K/uL (0-1); LYMPHOCYTES # (AUTO) 1.3 K/uL (1.0-4.8); LYMPHOCYTES % (AUTO) 23.2 % (21.0-51.0); MEAN CORPUSCULAR HGB CONC 31.8 g/dL (32.0-36.0); MEAN CORPUSCULAR VOLUME 91.1 fL (79-99); MONOCYTES # (AUTO) 0.7 K/uL (0.1-1.0); MONOCYTES % (AUTO) 11.7 % (3.0-13.0); NEUTROPHILS # (AUTO) 3.6 K/uL (1.8-7.7); NEUTROPHILS % (AUTO) 63.5 % (40.0-77.0); PLATELET COUNT (AUTO) 183 K/uL (130-400); RED BLOOD CELL COUNT(AUTO) 3.14 MIL/uL (4.00-5.50); RED CELL DISTRIBUTION WIDTH 15.3 % (11.0-15.5); WHITE BLOOD COUNT (AUTO) 5.7 K/uL (4.8-10.8)
[2024-03-06 04:36] LABS: CREATININE 1.5 mg/dL (0.5-1.0); PHOSPHORUS 4.1 mg/dL (2.5-4.9)
[2024-03-06] MEDS: FUROSEMIDE 40 MG TABLET PO SCH (16:54)
[2024-03-07] VITALS (7 sets, daily range): BP systolic 116–148; BP diastolic 51–67; PULSE 59–67; RESP 18–20; O2SAT 94–95
[2024-03-07 03:55] LABS: BASOPHILS # (AUTO) 0.01 K/uL (0.00-0.20); BASOPHILS % (AUTO) 0.2 % (0.0-5.0); EOSINOPHILS # (AUTO) 0.08 K/uL (0.00-0.70); EOSINOPHILS % (AUTO) 1.7 % (0.0-8.0); HEMATOCRIT 25.9 % (36-48); IMMATURE GRANULOCYTE ABSOLUTE 0.02 K/uL (0-1); MEAN CORPUSCULAR HEMOGLOBIN 28.7 pg (27.0-33.0); MEAN CORPUSCULAR HGB CONC 32.4 g/dL (32.0-36.0); MEAN CORPUSCULAR VOLUME 88.4 fL (79-99); MONOCYTES # (AUTO) 0.6 K/uL (0.1-1.0); MONOCYTES % (AUTO) 12.8 % (3.0-13.0); NEUTROPHILS # (AUTO) 3.1 K/uL (1.8-7.7); NEUTROPHILS % (AUTO) 64.9 % (40.0-77.0); PLATELET COUNT (AUTO) 166 K/uL (130-400); RED BLOOD CELL COUNT(AUTO) 2.93 MIL/uL (4.00-5.50); RED CELL DISTRIBUTION WIDTH 15.3 % (11.0-15.5); WHITE BLOOD COUNT (AUTO) 4.8 K/uL (4.8-10.8)
[2024-03-07 04:07] LABS: CREATININE 1.6 mg/dL (0.5-1.0); POTASSIUM 3.6 mmol/L (3.5-5.1)
[2024-03-07] MEDS: KCL 20 MEQ ERTAB PO PRN (05:41)
[2024-03-08] VITALS (8 sets, daily range): BP systolic 98–144; BP diastolic 41–68; PULSE 60–64; RESP 18–20; O2SAT 95–97
[2024-03-08] MEDS: LACTULOSE 20 GM/30 ML UDCUP PO PRN (06:18)
[2024-03-08 13:51] LABS: % IRON SATURATION 10.7 % (22-44)
[2024-03-08] MEDS: IRON SUCROSE COMPLEX 100 MG/5 ML VIAL IV SCH (15:39)
[2024-03-08] MEDS: POTASSIUM CHLORIDE 10% ELIXIR 20 MEQ/15 ML UDCUP PO PRN (16:16)
[2024-03-09] VITALS (8 sets, daily range): BP systolic 116–142; BP diastolic 51–59; PULSE 60–62; RESP 18; O2SAT 92–95
[2024-03-09 03:25] LABS: HEMATOCRIT 27.3 % (36-48); MEAN CORPUSCULAR HEMOGLOBIN 28.4 pg (27.0-33.0); MEAN CORPUSCULAR HGB CONC 32.2 g/dL (32.0-36.0); MEAN CORPUSCULAR VOLUME 88.1 fL (79-99); RED BLOOD CELL COUNT(AUTO) 3.1 MIL/uL (4.00-5.50); RED CELL DISTRIBUTION WIDTH 15.2 % (11.0-15.5); WHITE BLOOD COUNT (AUTO) 4.8 K/uL (4.8-10.8)
[2024-03-09 03:34] LABS: CREATININE 1.6 mg/dL (0.5-1.0); MAGNESIUM 1.9 mg/dL (1.80-2.40)
[2024-03-09] MEDS: PEG 3350/NA SULF,BICARB,CL/KCL 4000 ML SOLN PO ONE (16:33)
[2024-03-10] VITALS (27 sets, daily range): BP systolic 122–183; BP diastolic 44–76; PULSE 58–67; RESP 15–20; O2SAT 95–96
[2024-03-10] MEDS ORDERED: LIDOCAINE PF 100MG/5ML (2%) SYRINGE 5ML ONE (09:49)
[2024-03-10] MEDS ORDERED: PROPOFOL 10 MG/ML 20ML VIAL IV ONE (09:49)
[2024-03-11] VITALS (8 sets, daily range): BP systolic 115–141; BP diastolic 49–59; PULSE 55–65; RESP 16–20; O2SAT 96–98
[2024-03-11 05:05] LABS: HEMATOCRIT 26.6 % (36-48); MEAN CORPUSCULAR HEMOGLOBIN 28.6 pg (27.0-33.0); MEAN CORPUSCULAR VOLUME 89.6 fL (79-99); RED BLOOD CELL COUNT(AUTO) 2.97 MIL/uL (4.00-5.50); RED CELL DISTRIBUTION WIDTH 15.3 % (11.0-15.5); WHITE BLOOD COUNT (AUTO) 5.1 K/uL (4.8-10.8)
[2024-03-11 05:14] LABS: CREATININE 1.4 mg/dL (0.5-1.0); MAGNESIUM 1.7 mg/dL (1.80-2.40); POTASSIUM 3.8 mmol/L (3.5-5.1)
[2024-03-11] MEDS: FUROSEMIDE 40MG VIAL IV SCH (05:17)
[2024-03-11] MEDS: MAGNESIUM 2GM PREMIX 50ML 50 ML IV PRN (05:59)
[2024-03-11] MEDS ORDERED: FURO40TA7 PO (16:14)
== END 2024-03-11 18:47 | disposition home or self-care (01) | DRG 291 ==
LOC: EDH 22:01 → EDHIP 03-05 02:24 → INTOOBSV 03-05 02:24 → OBSVTOIN 03-05 02:24 → 2AH 03-05 22:50 → 3DH 03-10 11:05
PROVIDERS: ADMIT Internal Medicine Critical Care Medicine; ATTEND Internal Medicine Critical Care Medicine
PROC: 0DJD8ZZ Inspection of Lower Intestinal Tract, Via Natural or Artificial Opening Endoscopic (ICD-10-PCS; principal; 2024-03-10)
PROC: 0DJ08ZZ Inspection of Upper Intestinal Tract, Via Natural or Artificial Opening Endoscopic (ICD-10-PCS; 2024-03-10)
DX: I13.0 Hypertensive heart and chronic kidney disease with heart failure and stage 1 through stage 4 chronic kidney disease, or unspecified chronic kidney disease (principal); I50.33 Acute on chronic diastolic (congestive) heart failure; R18.8 Other ascites; Z68.42 Body mass index [BMI] 45.0-49.9, adult; J91.8 Pleural effusion in other conditions classified elsewhere; I85.10 Secondary esophageal varices without bleeding; K74.60 Unspecified cirrhosis of liver; Z20.822 Contact with and (suspected) exposure to COVID-19; D63.8 Anemia in other chronic diseases classified elsewhere; N18.32 Chronic kidney disease, stage 3b; K31.89 Other diseases of stomach and duodenum; E11.22 Type 2 diabetes mellitus with diabetic chronic kidney disease; E66.01 Morbid (severe) obesity due to excess calories; E78.5 Hyperlipidemia, unspecified; D50.9 Iron deficiency anemia, unspecified; E11.51 Type 2 diabetes mellitus with diabetic peripheral angiopathy without gangrene; I70.8 Atherosclerosis of other arteries; I25.10 Atherosclerotic heart disease of native coronary artery without angina pectoris; K57.30 Diverticulosis of large intestine without perforation or abscess without bleeding; G47.33 Obstructive sleep apnea (adult) (pediatric); M10.9 Gout, unspecified; Z83.3 Family history of diabetes mellitus; Z82.49 Family history of ischemic heart disease and other diseases of the circulatory system; Z95.0 Presence of cardiac pacemaker; Z90.711 Acquired absence of uterus with remaining cervical stump; Z95.5 Presence of coronary angioplasty implant and graft; Z79.899 Other long term (current) drug therapy; Z79.82 Long term (current) use of aspirin
CPT/HCPCS: 36415; 43235; 45378; 71045; 74018; 74176; 76830; 80048; 80053; 81003; 82948; 83540; 83550; 83690; 83735; 83880; 84100; 84145; 84484; 85025; 85027; 85610; 85730; 87635; 87804; 93005; 93306; 93970; 94760; G0378; J1650; J1756; J1815; J1940; J2001; J2470; J2704; J3475; A4222; A4223; A4620; J3490

== ENCOUNTER 2024-09-15 19:16 | Emergency (ER) | payer OTHER ==
[~2024-09-15] VITALS: Ht 157.5 cm; Wt 107.5 kg
[~2024-09-15 19:16] MED LIST changes: -ATOR40TA69 PO; +ATOR40TA71 PO; -AZIT500T4 PO; +CARV12.580 PO; -CHOL100040 PO; -CLOP75TA32 PO; +FERR325T29 PO; -FURO20TA4 PO; -HYDR25TA PO; +MECL-302 PO; -METO-409 PO; +NITR0.4T50 SL; -TIRZ2.5P SQ; +VITA-348 PO; -VITA-395 PO; +VITAMIN D PO
--- NOTE | 2024-09-15 19:24 | NUR ---
UA CUP PROVIDED
--- NOTE | 2024-09-15 20:17 | EKG ---
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1950 Requested By: PAULO HANKINS Order Number: [id number] Reading MD: Emelyn Gil Measurements Intervals [place] Rate: 65 P: -82 AK: 238 QRS: -52 QRSD: 153 T: 63 QT: 444 QTc: 463 Interpretive Statements Sinus or ectopic atrial rhythm with first degree AV block Left bundle branch block Compared to ECG 04/07/2024 02:12:06 Ectopic atrial rhythm now present Left bundle-branch block now present Atrial-paced complex(es) or rhythm no longer present Intraventricular conduction delay no longer present Left ventricular hypertrophy no longer present Myocardial infarct finding no longer present Electronically Signed On 09-16-2024 16:09:31 [employer] by Emelyn Gil Please click the below link to view image of tracing.
[2024-09-15 20:40] LABS: BASOPHILS # (AUTO) 0.02 K/uL (0.00-0.20); BASOPHILS % (AUTO) 0.3 % (0.0-5.0); EOSINOPHILS # (AUTO) 0.08 K/uL (0.00-0.70); EOSINOPHILS % (AUTO) 1.3 % (0.0-8.0); HEMATOCRIT 28.9 % (36-48); IMMATURE GRANULOCYTE ABSOLUTE 0.02 K/uL (0-1); LYMPHOCYTES % (AUTO) 17.2 % (21.0-51.0); MEAN CORPUSCULAR HEMOGLOBIN 29.3 pg (27.0-33.0); MEAN CORPUSCULAR HGB CONC 32.2 g/dL (32.0-36.0); MEAN CORPUSCULAR VOLUME 91.2 fL (79-99); MONOCYTES # (AUTO) 0.6 K/uL (0.1-1.0); NEUTROPHILS # (AUTO) 4.3 K/uL (1.8-7.7); NEUTROPHILS % (AUTO) 70.9 % (40.0-77.0); PLATELET COUNT (AUTO) 198 K/uL (130-400); RED BLOOD CELL COUNT(AUTO) 3.17 MIL/uL (4.00-5.50); RED CELL DISTRIBUTION WIDTH 13.8 % (11.0-15.5)
[2024-09-15 20:50] LABS: CREATININE 1.6 mg/dL (0.5-1.0); POTASSIUM 4.8 mmol/L (3.5-5.1)
--- NOTE | 2024-09-15 20:51 | HMCIMG ---
PORTABLE CHEST RADIOGRAPH INDICATION: CHEST PAIN COMPARISON: 04/08/2024 FINDINGS: Left sided dual chamber pacer and continuous leads remain in customary position. Heart size is normal. The pulmonary vascularity and rey appear normal. No abnormal pulmonary parenchymal opacity or consolidation identified. No significant pleural effusion noted. No pneumothorax detected. IMPRESSION: No radiographic evidence for any acute cardiopulmonary process.
[2024-09-15 20:52] LABS: APPEARANCE,URINE CLEAR (CLEAR); BILIRUBIN,URINE NEGATIVE (NEGATIVE); COLOR,URINE LIGHT-YELLOW (YELLOW); GLUCOSE, URINE (UA) NEGATIVE (NEGATIVE); KETONES,URINE NEGATIVE (NEGATIVE); LEUKOCYTE ESTERASE ,URINE NEGATIVE Leu/uL (NEGATIVE); NITRATE,URINE NEGATIVE (NEGATIVE); OCCULT BLOOD,URINE NEGATIVE (NEGATIVE); PH,URINE 6.5 (5.0-8.0); PROTEIN,URINE NEGATIVE (NEGATIVE); UROBILINOGEN,URINE 0.2 mg/dL (0.2-1.0)
[2024-09-15 20:53] LABS: ADD UA MICROSCOPIC YES
[2024-09-15 21:08] LABS: B-TYPE NATRIURETIC PEPTIDE 263 pg/mL (0-100)
[2024-09-15 21:32] LABS: BACTERIA,URINE MOD /HPF (None Seen); RBC,URINE 0-1 /HPF (0-1); SQUAMOUS EPITHELIAL CELL,UR RARE /HPF (0-2); WBC,URINE 0-1 /HPF (0-1)
[2024-09-15] MEDS ORDERED: HYDR100T15 PO (22:42)
[2024-09-15] MEDS ORDERED: FURO20TA4 PO (22:42)
[2024-09-15] MEDS ORDERED: LOSA50TA64 PO (22:42)
[2024-09-15] MEDS ORDERED: HYDR50TA37 PO (22:42)
--- NOTE | 2024-09-15 22:43 | NUR ---
MEDREC DONE AT THIS TIME.
--- NOTE | 2024-09-15 23:29 | ERN ---
General Chief Complaint: Multiple Complaints Stated Complaint: MECHANICAL FALL,BACK PAIN Time Seen by MD: 19:17 Source: patient History of Present Illness Initial Comments In his is a 74-year-old female coming in to be evaluated for back pain. Patient states that she was noticed her feet swelling in her abdomen in the normal areas swelling as well. She does have a history of liver cirrhosis and states that her oncologist advised her to come in to be evaluated. States that today she slipped back the shower landing on her left upper back region and states that she does have upper back pain. She did not pass out and states that the fall was caused by slippery floor. Allergies: Coded Allergies: No Known Drug Allergies (Verified Allergy, Unknown, 12/20/20) Home Meds Active Scripts Gabapentin (Gabapentin) 100 Mg Capsule, 100 MG PO BID PRN for PAIN for 5 Days, #10 CAP Prov:PAULO HANKINS MD 09/16/24 Azithromycin (Azithromycin) 500 Mg Tablet, 1 TAB PO DAILY for 5 Days, #5 TAB 0 Refills Prov:PAULO HANKINS MD 09/16/24 Carvedilol (Coreg) 12.5 Mg Tablet, 12.5 MG PO BID, #60 TAB 1 Refill Prov:TOBIAS LOFTON 04/10/24 Reported Medications Hydralazine HCl (Hydralazine HCl) 50 Mg Tablet, 50 MG PO HS, TAB 09/15/24 Hydralazine HCl (Hydralazine HCl) 100 Mg Tablet, 100 MG PO AM, TAB 09/15/24 Losartan Potassium (Losartan Potassium) 50 Mg Tablet, 1 TAB PO DAILY for 30 Days, #30 TAB 0 Refills 09/15/24 [Vitamin D ] No Conflict Check, 50 MCG PO DAILY 03/05/24 Aspirin (ASPIRIN 81 MG ECTAB) 81 Mg Ectab, 81 MG PO DAILY, TAB.EC 03/05/24 Multivitamin (Multivitamin) 1 Each Tablet, 1 EACH PO DAILY, TAB 03/05/24 Vitamin E Mixed (Vitamin E) 400 Unit Capsule, 400 UNIT PO DAILY, CAP 03/05/24 Atorvastatin Calcium (Atorvastatin Calcium) 40 Mg Tablet, 40 MG PO HS, TAB 03/05/24 Clonidine HCl (Clonidine HCl) 0.2 Mg Tablet, 0.2 MG PO BID, TAB 03/05/24 Isosorbide Mononitrate (Isosorbide Mononitrate ER) 30 Mg Tab.er.24h, 90 MG PO DAILY for HYPERTENSION, TAB 03/05/24 Discontinued Reported Medications Albuterol Sulfate (Ventolin Hfa) 90 Mcg Hfa.aer.ad, 2 PUFF IH Q4HPRN PRN for wheezing for 30 Days, #18 GM 0 Refills 09/16/24 Oxycodone HCl (Oxycodone HCl) 15 Mg Tablet, 1 TAB PO TIDP PRN for pain for 30 Days, #90 TAB 0 Refills 09/16/24 Levothyroxine Sodium (Levothyroxine Sodium) 50 Mcg Tablet, 1 TAB PO DAILY for 30 Days, #30 TAB 0 Refills 09/16/24 Losartan Potassium (Losartan Potassium) 25 Mg Tablet, 1 TAB PO DAILY for 30 Days, #30 TAB 0 Refills 09/16/24 Lenalidomide (Revlimid) 10 Mg Capsule, 1 CAP PO DAILY for 21 Days, #21 CAP 0 Refills 09/16/24 Lorazepam (Ativan) 1 Mg Tablet, 1 TAB PO [id number] PRN for anxiety for 30 Days, #60 TAB 0 Refills 09/16/24 Tizanidine HCl (Tizanidine HCl) 4 Mg Tablet, 1 TAB PO TID for 30 Days, #90 TAB 0 Refills 09/16/24 Alprazolam (Alprazolam) 2 Mg Tablet, 2 MG PO HS, TAB 09/16/24 Metolazone (Metolazone) 2.5 Mg Tablet, 2.5 MG PO QWEEK, TAB 09/16/24 Ferrous Sulfate (Iron) 325 Mg (65 Mg Iron) Tablet, 1 TAB PO DAILY for 30 Days, #30 TAB 0 Refills 09/16/24 Calcium Carbonate/Vitamin D3 (Calcium 600 + Vit D3 400 Tab) 600 Mg Calcium-10 Mcg (400 Unit) Tablet, 1 EACH PO DAILY, TAB 09/16/24 Magnesium Oxide (Magnesium) 400 Mg Magnesium Capsule, 1 CAP PO DAILY for 30 Days, #30 CAP 0 Refills 09/16/24 Pantoprazole Sodium (Pantoprazole Sodium) 40 Mg Tablet.dr, 1 TAB PO DAILY for 30 Days, #30 TAB 0 Refills 09/16/24 Hydrocodone/Acetaminophen (Hydrocodon-Acetaminophn 10-325) 10 Mg-325 Mg Tablet, 1 TAB PO QIDP PRN for pain for 5 Days, #20 TAB 0 Refills 09/16/24 Diphenoxylate HCl/Atropine (Diphenoxylate-Atropine Tablet) 2.5 Mg-0.025 Mg Tablet, 1 EACH PO TID, TAB 09/16/24 Baclofen (Baclofen) 20 Mg Tablet, 1 TAB PO TID for 30 Days, #90 TAB 0 Refills 09/16/24 Amlodipine Besylate (Amlodipine Besylate) 5 Mg Tablet, 1 TAB PO DAILY for 30 Days, #30 TAB 0 Refills 09/16/24 Prednisone (Prednisone) 5 Mg Tablet, 5 MG PO BID, TAB 09/16/24 Prednisone (Prednisone) 20 Mg Tablet, 1 TAB PO DAILY for 5 Days, #5 TAB 0 Refills 09/16/24 Furosemide (Furosemide) 20 Mg Tablet, 1 TAB PO DAILY for 30 Days, #30 TAB 0 Refills 09/15/24 Ferrous Sulfate (Ferosul) 325 Mg (65 Mg Iron) Tablet, 65 MG PO AD, TAB 04/07/24 Insulin Glargine,Hum.rec.anlog (Basaglar Kwikpen U-100) 100 Unit/Ml (3 Ml) Insuln.pen, 50 UNIT SQ DAILY, SYRINGE 04/07/24 Nitroglycerin (Nitroglycerin) 0.4 Mg Tab.subl, 0.4 MG SL AD PRN for CHEST PAIN, TAB.SL 03/05/24 Amlodipine Besylate (Amlodipine Besylate) 5 Mg Tablet, 5 MG PO DAILY, TAB 03/05/24 Hydralazine HCl (Hydralazine HCl) 100 Mg Tablet, 100 MG PO TID, TAB 03/05/24 Losartan Potassium (Losartan Potassium) 100 Mg Tablet, 100 MG PO DAILY, TAB 03/05/24 Insulin Glargine,Hum.rec.anlog (Basaglar Kwikpen U-100) 100 Unit/Ml (3 Ml) Insuln.pen, 50 UNIT SQ BID, SYRINGE 03/05/24 Discontinued Scripts Meclizine HCl (Meclizine HCl) 25 Mg Tablet, 25 MG PO TID PRN for DIZZINESS, #30 TAB 0 Refills Prov:TOBIAS LOFTON 04/10/24 Past Medical History Past Medical History: Anemia, CHF, Diabetes-Type II, Hypertension Medical History Other: GOUT Past Surgical History: Hysterectomy, Cholecystectomy, Pacer/AICD Surgical History Other: PACEMAKER MEDTRONIC, CARDIAC STENTS Family History Family History: DM, HTN Social History Social History: Negative, Lives with family Female( History) History: Not Applicable ROS Dictation CONSTITUTIONAL: No chills, no fever, no weakness, no diaphoresis, no malaise. HEAD/FACE: No signs of trauma. EENT: No eye pain, no blurred vision, no tearing, no double vision, no ear pain, no ear discharge, no nose pain, no nasal congestion, no throat pain, no throat swelling, no mouth pain. RESPIRATORY: No cough, no orthopnea, no SOB, no stridor, no wheezing. CARDIOVASCULAR: No chest pain, no edema, no palpitations, no syncope. GASTROINTESTINAL/ABDOMINAL: No abdominal pain, no constipation, no diarrhea, no nausea, no vomiting. GENITOURINARY: No abnormal discharge, no dysuria, no frequent urination, no hematuria. No complaints of pain in the genitals. MUSCULOSKELETAL: back pain, no gout, no joint pain, no joint swelling, no muscle pain, no muscle stiffness, no neck pain. INTEGUMENTARY: No change in color, no change in hair/nails, no dryness, no lesion, no lumps, no rash. NEUROLOGICAL/PSYCH: No anxiety, not depressed, no emotional problem, no headache, no numbness, no pre-existing deficit, no history of seizures, no tremors, no weakness. HEMATOLOGIC/LYMPHATIC: Not anemic, no history of blood clots, no apparent bleeding, no bruising, glands not swollen. All Systems Negative, Except as Noted. Physical Exam Physical Exam Dictation VITAL SIGNS: Reviewed. GENERAL APPEARANCE: Alert, oriented x3, no acute distress, obese. HEAD AND FACE: Non-traumatic. EYES: PERRL, pink conjunctivas, eyelid no trauma, anterior chamber clear. EARS: Pinnas intact and no signs of trauma or erythema. Ear canals clear and no discharge. TMs no erythema. NOSE: No discharge, no bleeding. OROPHARYNX: Mouth normal, teeth no caries, tongue pink. Pharynx clear, no erythema. Tonsils no exudates, no abscesses noted. Mucous membrane moist. NECK: Supple, non-tender, no thyromegaly, no masses, no JVD, no bruits. BREAST: Deferred. CHEST: No tenderness, no crepitus, no paradoxical movement, no retractions. LUNGS: Clear, well-ventilated, symmetric, no rales, no wheezing, no rhonchi, no stridor, good breath sounds bilaterally. HEART: Regular rate, regular rhythm, no murmur, no gallops. VASCULAR: No peripheral edema. ABDOMEN: Soft, positive bowel sounds, nondistended, no guarding, nontender, no rebound, no masses no hepatomegaly, no splenomegaly, no Biswas's sign, no hernias. RECTAL: Deferred. GENITAL: Deferred. NEUROLOGICAL: Normal speech, gross motor function intact, gross sensory function intact. MUSCULOSKELETAL: Neck nontender, full range of motion, left upper backend python developer, full range of motion. EXTREMITIES: Nontender, full range of motion. SKIN: Color pink, dry, no turgor, no rash, no lacerations, no abrasions, no contusions. LYMPHATICS: Deferred. Results Laboratory and Microbiology Lab and Micro Result Laboratory Tests Test 09/15/24 20:11 White Blood Count 6.0 K/uL (4.8-10.8) Red Blood Count 3.17 MIL/uL (4.00-5.50) L Hemoglobin 9.3 g/dL (12.0-16.0) L Hematocrit 28.9 % (36-48) L Mean Corpuscular Volume 91.2 fL (79-99) Mean Corpuscular Hemoglobin 29.3 pg (27.0-33.0) Mean Corpuscular Hemoglobin Concent 32.2 g/dL (32.0-36.0) Red Cell Distribution Width 13.8 % (11.0-15.5) Platelet Count 198 K/uL (130-400) Mean Platelet Volume 9.9 fL (7.5-10.5) Immature Granulocyte % (Auto) 0.3 % (0-1) Neutrophils (%) (Auto) 70.9 % (40.0-77.0) Lymphocytes (%) (Auto) 17.2 % (21.0-51.0) L Monocytes (%) (Auto) 10.0 % (3.0-13.0) Eosinophils (%) (Auto) 1.3 % (0.0-8.0) Basophils (%) (Auto) 0.3 % (0.0-5.0) Neutrophils # (Auto) 4.3 K/uL (1.8-7.7) Lymphocytes # (Auto) 1.0 K/uL (1.0-4.8) Monocytes # (Auto) 0.6 K/uL (0.1-1.0) Eosinophils # (Auto) 0.08 K/uL (0.00-0.70) Basophils # (Auto) 0.02 K/uL (0.00-0.20) Absolute Immature Granulocyte (auto 0.02 K/uL (0-1) Nucleated Red Blood Cells 0.0 % (0.0-0.19) Urine Color LIGHT-YELLOW (YELLOW) Urine Appearance CLEAR (CLEAR) Urine pH 6.5 (5.0-8.0) Urine Specific [place] 1.013 (1.001-1.031) Urine Protein NEGATIVE mg/dL (NEGATIVE) Urine Glucose (UA) NEGATIVE mg/dL (NEGATIVE) Urine Ketones NEGATIVE mg/dL (NEGATIVE) Urine Occult Blood NEGATIVE (NEGATIVE) Urine Nitrate NEGATIVE (NEGATIVE) Urine Bilirubin NEGATIVE mg/dL (NEGATIVE) Urine Urobilinogen 0.2 mg/dL (0.2-1.0) Urine Leukocyte Esterase NEGATIVE Kris/uL Urine RBC 0-1 /HPF (0-1) Urine WBC 0-1 /HPF (0-1) Urine Squamous Epithelial Cells RARE /HPF (0-2) Urine Bacteria MOD /HPF (None Seen) Sodium Level 138 mmol/L (136-145) Potassium Level 4.8 mmol/L (3.5-5.1) Chloride Level 102 mmol/L (101-111) Carbon Dioxide Level 32 mmol/L (21-32) Blood Urea Nitrogen 38 mg/dL (7-18) H Creatinine 1.6 mg/dL (0.5-1.0) H Glomerular Filtration Rate Calc 34 mL/min (>90) Random Glucose 111 mg/dL (70-105) H Total Calcium 9.2 mg/dL (8.5-10.1) Total Creatine Kinase 46 U/L (21-232) # Troponin I High Sensitivity 7 ng/L (4-50) B-Type Natriuretic Peptide 263 pg/mL (0-100) H Labs Reviewed?: Yes EKG/XRAY/US/CT/MRI EKG Comment 09/15/2024 time 8:14 p.m. Ventricular rate 65 Sinus rhythm SD [address] wave elevation or depression X-RAY Comment [address] [place] [address] IMAGING REPORT Signed PATIENT: HIRAL BENITEZ MR#: [id number] : 1950 SEX: F AGE: 74 LOCATION: [facility] ORDER 24 STATUS: REG ER REPORT#: [id number] SERVICE 23 REASON: CHEST PAIN ORDERING PHYSICIAN: PAULO HANKINS MD PROCEDURE: CXR1VW - CHEST 1VW PORTABLE CHEST RADIOGRAPH INDICATION: CHEST PAIN COMPARISON: 04/08/2024 FINDINGS: Left sided dual chamber pacer and continuous leads remain in customary position. Heart size is normal. The pulmonary vascularity and rey appear normal. No abnormal pulmonary parenchymal opacity or consolidation identified. No significant pleural effusion noted. No pneumothorax detected. IMPRESSION: No radiographic evidence for any acute cardiopulmonary process. DICTATED BY: ENEIDA GONZALEZ MD DATE: 09/15/242037 ELECTRONICALLY SIGNED BY: ENEIDA GONZALEZ MD DATE: 09/15/242050 Thoracic spine--[facility] MDM: Differential diagnosis:fall, hx of liver cirrhosis, back pain Patient is a 70-year-old female coming in to be evaluated for upper back pain. Patient states that she has had this upper back pain for a while. Patient also has a with a history of liver cirrhosis in his coming in due to increased fluid retention. Laboratory workup negative for acute findings imaging studies did not disclose any acute findings. Patient will be discharged in stable condition with a diagnosis of mechanical fall with history of liver cirrhosis. ED Course Orders Procedure Category Date Status Time Vital Signs Per CPOE 09/15/24 Transmitted Routine 19:24 B-Type Natriuretic LAB 09/15/24 Complete Peptide 19:24 Chest 1vw RAD 09/15/24 Resulted 19:24 12 Lead Ekg Tracing- EKG 09/15/24 Complete Technical 19:24 Oxygen By Nc/Pulse Ox CPOE 09/15/24 Transmitted 19:24 Maintain Iv CPOE 09/15/24 Transmitted 19:24 Iv Insertion CPOE 09/15/24 Transmitted 19:24 Cardiac Monitoring CPOE 09/15/24 Transmitted 19:24 Pulse Oximetry With CPOE 09/15/24 Transmitted Vs And Prn 19:24 Cbc With Differential LAB 09/15/24 Complete 19:24 Activity: Br W/Brp CPOE 09/15/24 Transmitted With Assist 19:24 Creatine Kinase, Total LAB 09/15/24 Complete 19:24 Troponin I High LAB 09/15/24 Complete Sensitivity 19:24 Urinalysis Profile LAB 09/15/24 Complete 19:24 Troponin Poc Order LAB 09/15/24 Complete Only 19:24 Bedside Troponin-I LAB.ER 09/15/24 In Process (Poc) 19:24 Basic Metabolic Panel LAB 09/15/24 Complete 19:24 Thoracic Spine 3vws RAD 09/15/24 Taken 23:32 Vital Signs Date Time Temp Pulse Resp B/P (MAP) Pulse Ox O2 Delivery O2 Flow Rate FiO2 09/16/24 00:45 69 18 148/59 98 Room Air* 0 21 09/15/24 22:35 98.8 65 20 144/56 98 Room Air* 0 21 09/15/24 19:17 98.2 64 16 170/69 98 Room Air DX & DISP Disposition: Discharge Departure Impression: Primary Impression: Anasarca Additional Impression: Upper back pain Condition: Stable Scripts Gabapentin (Gabapentin) 100 Mg Capsule 100 MG PO BID PRN for PAIN for 5 Days, #10 CAP Prov: PAULO HANKINS MD 09/16/24 Azithromycin (Azithromycin) 500 Mg Tablet 1 TAB PO DAILY for 5 Days, #5 TAB 0 Refills Prov: PAULO HANKINS MD 09/16/24 Additional Instructions: FOLLOW-UP WITH PRIMARY CARE PROVIDER IN 1 TO 2 DAYS. TAKE MEDICATIONS DIRECTED HERE IN THE EMERGENCY ROOM. OKAY TO CONTINUE HOME MEDICATIONS UNLESS OTHERWISE DISCUSSED DURING YOUR VISIT IN THE EMERGENCY ROOM TODAY. RETURN TO YOUR NEAREST EMERGENCY ROOM IF SYMPTOMS WORSEN OR IF THERE IS NO IMPROVEMENT. CALL 911 IF YOU NEED IMMEDIATE ASSISTANCE. TAKE TYLENOL [id number] NEEDED AND IF NO CONTRAINDICATIONS ARE PRESENT. INCREASE ORAL HYDRATION. A WOUND CULTURE OR URINE CULTURE WAS ORDERED HERE IN THE EMERGENCY ROOM DEPARTMENT PLEASE FOLLOW-UP WITH PRIMARY CARE PROVIDER AND ADVISE THEM TO GET REPEAT PORTS FROM OUR FACILITY. IF YOU HAD ANY RAY WRAP/SPLINTS THAT WERE APPLIED HERE, PLEASE DO NOT REMOVE THEM UNTIL YOU SEE YOUR PRIMARY CARE OR SPECIALTY. Referrals: Referrals: VIJI GRANADOS MD (PCP) Time of Disposition: 01:24 PAULO HANKINS MD Sep 15, 2024 23:29
[2024-09-16] MEDS ORDERED: TIZA-211 PO (00:03)
[2024-09-16] MEDS ORDERED: CALC-805 PO (00:03)
[2024-09-16] MEDS ORDERED: LENA10CA PO (00:03)
[2024-09-16] MEDS ORDERED: LOSA25TA41 PO (00:03)
[2024-09-16] MEDS ORDERED: PRED5TAB PO (00:03)
[2024-09-16] MEDS ORDERED: PRED20TA3 PO (00:03)
[2024-09-16] MEDS ORDERED: PANT40TA54 PO (00:03)
[2024-09-16] MEDS ORDERED: METO2.5T2 PO (00:03)
[2024-09-16] MEDS ORDERED: LORA-192 PO (00:03)
[2024-09-16] MEDS ORDERED: ALPR2TAB7 PO (00:03)
[2024-09-16] MEDS ORDERED: DIPH-1150 PO (00:03)
[2024-09-16] MEDS ORDERED: HYDR-4068 PO (00:03)
[2024-09-16] MEDS ORDERED: OXYC15TA2 PO (00:03)
[2024-09-16] MEDS ORDERED: MAGN400C PO (00:03)
[2024-09-16] MEDS ORDERED: ALBU18HF7 IH (00:03)
[2024-09-16] MEDS ORDERED: FERR-82 PO (00:03)
[2024-09-16] MEDS ORDERED: LEVO50TA11 PO (00:03)
[2024-09-16] MEDS ORDERED: BACL20TA PO (00:03)
--- NOTE | 2024-09-16 00:50 | NUR ---
ENDORSED CARE TO LACY HARLEY.
[2024-09-16] MEDS ORDERED: GABA-529 PO (01:26)
[2024-09-16] MEDS ORDERED: AZIT500T4 PO (01:26)
[2024-09-16 02:08] VITALS: BP 161/58; PULSE 65; RESP 16; TEMP 98.2; O2SAT 97
--- NOTE | 2024-09-16 09:48 | HMCIMG ---
THORACIC SPINE 3VWS REASON: left upper back pain COMPARISON: None. TECHNIQUE: 3images were obtained. FINDINGS: There are normal appearing vertebral bodies. Interspace heights are well preserved. There are small anterior physis at multiple levels. There are no visible fractures. Soft tissues appear unremarkable. IMPRESSION: 1. Mild degenerative change, no acute findings.
== END 2024-09-16 02:17 | disposition home or self-care (01) ==
LOC: EDH 19:16
DX: M54.6 Pain in thoracic spine (principal); R60.1 Generalized edema; E11.9 Type 2 diabetes mellitus without complications; I11.0 Hypertensive heart disease with heart failure; I50.9 Heart failure, unspecified; I21.9 Acute myocardial infarction, unspecified; Z79.4 Long term (current) use of insulin; Z79.52 Long term (current) use of systemic steroids; Z79.61 Long term (current) use of immunomodulator; Z79.82 Long term (current) use of aspirin; Z79.890 Hormone replacement therapy; Z79.899 Other long term (current) drug therapy; Z90.49 Acquired absence of other specified parts of digestive tract; Z90.710 Acquired absence of both cervix and uterus; Z95.5 Presence of coronary angioplasty implant and graft; Z95.810 Presence of automatic (implantable) cardiac defibrillator; W18.2XXA Fall in (into) shower or empty bathtub, initial encounter; Y93.89 Activity, other specified; Y92.89 Other specified places as the place of occurrence of the external cause; Y99.8 Other external cause status
CPT/HCPCS: 36415; 71045; 72072; 80048; 81001; 82550; 83880; 84484; 85025; 93005; 99285

== ENCOUNTER → 2024-09-26 | Outpatient (CLI) | payer OTHER ==
[~2024-09-26] MED LIST changes: -AMLO-257 PO; +AZIT500T4 PO; -FERR325T29 PO; +GABA-529 PO; +HYDR50TA37 PO; -INSU100I26 SQ; -LOSA100T59 PO; +LOSA50TA64 PO; -MECL-302 PO; -NITR0.4T50 SL
[2024-09-26 09:19] LABS: BASOPHILS # (AUTO) 0.02 K/uL (0.00-0.20); BASOPHILS % (AUTO) 0.3 % (0.0-5.0); EOSINOPHILS # (AUTO) 0.04 K/uL (0.00-0.70); EOSINOPHILS % (AUTO) 0.6 % (0.0-8.0); HEMATOCRIT 29.2 % (36-48); IMMATURE GRANULOCYTE ABSOLUTE 0.01 K/uL (0-1); LYMPHOCYTES # (AUTO) 0.9 K/uL (1.0-4.8); LYMPHOCYTES % (AUTO) 13.8 % (21.0-51.0); MEAN CORPUSCULAR HEMOGLOBIN 28.7 pg (27.0-33.0); MEAN CORPUSCULAR HGB CONC 31.5 g/dL (32.0-36.0); MONOCYTES # (AUTO) 0.6 K/uL (0.1-1.0); MONOCYTES % (AUTO) 8.7 % (3.0-13.0); NEUTROPHILS # (AUTO) 5.2 K/uL (1.8-7.7); NEUTROPHILS % (AUTO) 76.5 % (40.0-77.0); PLATELET COUNT (AUTO) 244 K/uL (130-400); RED BLOOD CELL COUNT(AUTO) 3.21 MIL/uL (4.00-5.50); RED CELL DISTRIBUTION WIDTH 14.3 % (11.0-15.5); WHITE BLOOD COUNT (AUTO) 6.8 K/uL (4.8-10.8)
[2024-09-26 09:25] LABS: INR 1.12 (0.85-1.15); PROTHROMBIN TIME 12.4 SEC (9.6-11.6)
[2024-09-26 09:27] LABS: PARTIAL THROMBOPLASTIN TIME 31.5 SEC (26.3-35.5)
[2024-09-26 09:30] LABS: ALBUMIN 3.2 g/dL (3.5-5.0); BILIRUBIN,TOTAL 0.9 mg/dL (0.2-1.0); CREATININE 1.6 mg/dL (0.5-1.0); POTASSIUM 4.5 mmol/L (3.5-5.1); TOTAL PROTEIN, SERUM 7.9 g/dL (6.0-8.3)
--- NOTE | 2024-09-26 10:10 | NUR ---
U/S GD PARACENTESIS TOLERATED PROCEDURE. PERFORMED BY DR Mimi AYALA. 3.0 LITERS OF YELLOW CLOUDY FLUID REMOVED FROM RLQ. SPECIMEN SENT TO LAB. END OF PROCEDURE AT 0950. DRESSING DRY AND INTACT. NO BLEEDING NOTED. DISCHARGE INSTRUCTIONS GIVEN TO PT AND SPOUSE. VERBALIZED UNDERSTANDING. DISCHARGE VIA WHEELCHAIR. DENIES PAIN. A&O.
--- NOTE | 2024-09-26 10:11 | HMCIMG ---
ULTRASOUND GUIDED PARACENTESIS: INDICATION: Ascites TECHNIQUE: Informed consent was obtained. Timeout performed. All elements of maximal sterile barrier technique, including hand hygiene and cutaneous antisepsis were used. Patient was placed supine. Right lower quadrant was prepped and draped in sterile fashion. Local anesthesia was applied. Then, under ultrasound guidance, a 5F centesis needle was advanced through the abdominal wall and into a pocket of fluid in the peritoneum. It yielded 3.0 L of fluid. The catheter was removed and sterile dressing applied. Blood pressure monitoring was performed during the procedure. Complications: None Blood loss: <5 mL. IMPRESSION: Successful ultrasound guided paracentesis.
[2024-09-26 12:34] LABS: BODY FLUID RBC 316 /cu. mm.; BODY FLUID WBC 361 /cu. mm.
[2024-09-26 12:38] LABS: ALBUMIN,BODY FLUID 2.2 g/dL; TOTAL PROTEIN,BODY FLUID 4.8 g/dL
[2024-09-26 13:04] LABS: APPEARANCE BODY FLUID SLIGHTLY CLOUDY (CLEAR); COLOR,BODY FLUID YELLOW (LT YELLOW); SPECIMENTYPE,BODY FLUID ASCITES; TOTAL VOLUME,BODY FLUID 3000 mL
[2024-09-26 13:40] LABS: BF LYMPHOCYTE 67 %; BF MACROPHAGE 8; BF MESOTHELIAL 1 %; BF MONOCYTE 8 %; BF TOTAL CELLS COUNTED 100
== END | disposition home or self-care (01) ==
LOC: RAH 08:34
PROVIDERS: ATTEND Internal Medicine Gastroenterology
DX: R18.8 Other ascites (principal); R06.02 Shortness of breath; I50.9 Heart failure, unspecified; Z86.2 Personal history of diseases of the blood and blood-forming organs and certain disorders involving the immune mechanism; Z79.82 Long term (current) use of aspirin; Z79.01 Long term (current) use of anticoagulants; Z83.3 Family history of diabetes mellitus; Z82.49 Family history of ischemic heart disease and other diseases of the circulatory system; Z79.899 Other long term (current) drug therapy
CPT/HCPCS: 49083; 84157; 80053; 85025; 89051; 85610; 85730; 87071; 87205; 82042; 36415; C1729

== ENCOUNTER → 2024-11-07 | Outpatient (CLI) | payer OTHER ==
[2024-11-07 09:30] LABS: BASOPHILS # (AUTO) 0.01 K/uL (0.00-0.20); BASOPHILS % (AUTO) 0.2 % (0.0-5.0); EOSINOPHILS # (AUTO) 0.07 K/uL (0.00-0.70); EOSINOPHILS % (AUTO) 1.4 % (0.0-8.0); HEMATOCRIT 30.1 % (36-48); IMMATURE GRANULOCYTE ABSOLUTE 0.01 K/uL (0-1); LYMPHOCYTES # (AUTO) 0.7 K/uL (1.0-4.8); LYMPHOCYTES % (AUTO) 13.6 % (21.0-51.0); MEAN CORPUSCULAR HEMOGLOBIN 29.3 pg (27.0-33.0); MEAN CORPUSCULAR HGB CONC 31.6 g/dL (32.0-36.0); MEAN CORPUSCULAR VOLUME 92.9 fL (79-99); MONOCYTES # (AUTO) 0.5 K/uL (0.1-1.0); MONOCYTES % (AUTO) 9.3 % (3.0-13.0); NEUTROPHILS # (AUTO) 3.8 K/uL (1.8-7.7); NEUTROPHILS % (AUTO) 75.3 % (40.0-77.0); PLATELET COUNT (AUTO) 171 K/uL (130-400); RED BLOOD CELL COUNT(AUTO) 3.24 MIL/uL (4.00-5.50); RED CELL DISTRIBUTION WIDTH 14.8 % (11.0-15.5); WHITE BLOOD COUNT (AUTO) 5.1 K/uL (4.8-10.8)
[2024-11-07 09:42] LABS: INR 1.22 (0.85-1.15); PROTHROMBIN TIME 12.7 SEC (9.6-11.6)
[2024-11-07 09:43] LABS: ALBUMIN 3.1 g/dL (3.5-5.0); BILIRUBIN,TOTAL 0.7 mg/dL (0.2-1.0); CREATININE 1.5 mg/dL (0.5-1.0); PARTIAL THROMBOPLASTIN TIME 31.7 SEC (26.3-35.5); POTASSIUM 4.2 mmol/L (3.5-5.1); TOTAL PROTEIN, SERUM 7.9 g/dL (6.0-8.3)
--- NOTE | 2024-11-07 10:40 | NUR ---
U/S GD PARACENTESIS TOLERATED PROCEDURE. PERFORMED BY DR Mimi AYALA. PUNCTURE SITE TO RLQ. 2.0 LITER OF YELLOW CLOUDY FLUID REMOVED AND SENT TO LAB. END OF PROCEDURE 1020. DRESSING DRY AND INTACT. NO BLEEDING NOTED. DISCHARGE VIA WHEELCHAIR. DISCHARGE INSTRUCTIONS GIVEN TO PT. DISCHARGE VIA WHEELCHAIR WITH SPOUSE. DENIES PAIN. A&O.
[2024-11-07 11:53] LABS: ALBUMIN,BODY FLUID 2.1 g/dL; TOTAL PROTEIN,BODY FLUID 4.8 g/dL
[2024-11-07 11:59] LABS: APPEARANCE BODY FLUID SLIGHTLY CLOUDY (CLEAR); COLOR,BODY FLUID YELLOW (LT YELLOW); SPECIMENTYPE,BODY FLUID ASCITES
[2024-11-07 12:11] LABS: BODY FLUID RBC 220 /cu. mm.; BODY FLUID WBC 606 /cu. mm.
[2024-11-07 13:50] LABS: TOTAL VOLUME,BODY FLUID 2000 mL
[2024-11-07 14:06] LABS: BF LYMPHOCYTE 30 %; BF MACROPHAGE 17; BF MONOCYTE 5 %; BF TOTAL CELLS COUNTED 100
--- NOTE | 2024-11-07 14:17 | HMCIMG ---
ULTRASOUND GUIDED PARACENTESIS: INDICATION: Ascites TECHNIQUE: Informed consent was obtained. Timeout performed. All elements of maximal sterile barrier technique, including hand hygiene and cutaneous antisepsis were used. Patient was placed supine. Right lower quadrant was prepped and draped in sterile fashion. Local anesthesia was applied. Then, under ultrasound guidance, a 5F centesis needle was advanced through the abdominal wall and into a pocket of fluid in the peritoneum. It yielded 2 L of fluid. The catheter was removed and sterile dressing applied. Blood pressure monitoring was performed during the procedure. Complications: None Blood loss: <5 mL. IMPRESSION: Successful ultrasound guided paracentesis.
== END | disposition home or self-care (01) ==
LOC: RAH 08:53
PROVIDERS: ATTEND Internal Medicine Gastroenterology
DX: R18.8 Other ascites (principal); K74.60 Unspecified cirrhosis of liver; K76.9 Liver disease, unspecified; I85.00 Esophageal varices without bleeding; R10.12 Left upper quadrant pain; K57.30 Diverticulosis of large intestine without perforation or abscess without bleeding; I25.10 Atherosclerotic heart disease of native coronary artery without angina pectoris; I13.10 Hypertensive heart and chronic kidney disease without heart failure, with stage 1 through stage 4 chronic kidney disease, or unspecified chronic kidney disease; E11.22 Type 2 diabetes mellitus with diabetic chronic kidney disease; N18.9 Chronic kidney disease, unspecified; Z86.0100 Personal history of colon polyps, unspecified; Z80.0 Family history of malignant neoplasm of digestive organs; Z79.02 Long term (current) use of antithrombotics/antiplatelets; Z95.0 Presence of cardiac pacemaker
CPT/HCPCS: 49083; 84157; 80053; 85025; 89051; 85610; 85730; 87071; 87205; 82042; 36415; 88108; 88305; C1729

== ENCOUNTER → 2024-12-02 | Outpatient (CLI) | payer OTHER ==
[~2024-12-02] MED LIST changes: -AZIT500T4 PO; +CYAN250010 PO; +DOCU-116 PO; +FERS325 PO; +FOLI0.4T6 PO; +FOLI0.8T22 PO; +FURO40TA5 PO; -GABA-529 PO; +INSU100I24 SQ; +POLY17PO4 PO
[2024-12-02 10:03] LABS: BASOPHILS # (AUTO) 0.01 K/uL (0.00-0.20); BASOPHILS % (AUTO) 0.2 % (0.0-5.0); EOSINOPHILS # (AUTO) 0.05 K/uL (0.00-0.70); EOSINOPHILS % (AUTO) 0.9 % (0.0-8.0); HEMATOCRIT 31.8 % (36-48); IMMATURE GRANULOCYTE ABSOLUTE 0.01 K/uL (0-1); LYMPHOCYTES # (AUTO) 0.7 K/uL (1.0-4.8); LYMPHOCYTES % (AUTO) 11.8 % (21.0-51.0); MEAN CORPUSCULAR HEMOGLOBIN 29.5 pg (27.0-33.0); MEAN CORPUSCULAR HGB CONC 32.4 g/dL (32.0-36.0); MEAN CORPUSCULAR VOLUME 91.1 fL (79-99); MONOCYTES # (AUTO) 0.4 K/uL (0.1-1.0); NEUTROPHILS # (AUTO) 4.4 K/uL (1.8-7.7); NEUTROPHILS % (AUTO) 78.9 % (40.0-77.0); PLATELET COUNT (AUTO) 186 K/uL (130-400); RED BLOOD CELL COUNT(AUTO) 3.49 MIL/uL (4.00-5.50); RED CELL DISTRIBUTION WIDTH 14.8 % (11.0-15.5); WHITE BLOOD COUNT (AUTO) 5.5 K/uL (4.8-10.8)
--- NOTE | 2024-12-02 10:10 | NUR ---
U/S GD PARACENTESIS NOT DONE U/S PERFORMED BY Maru HERNANDES RDMS. IMAGES REVIEWED BY DR Mimi AYALA. PER DR AYALA NOT ENOUGH FLUID TO SAFELY PERFORM PROCEDURE. PT INFORMED OF OUTCOME. DISCHARGE VIA WHEELCHAIR WITH SPOUSE. DENIES PAIN. A&O.
[2024-12-02 10:15] LABS: INR 1.12 (0.85-1.15); PROTHROMBIN TIME 11.7 SEC (9.6-11.6)
[2024-12-02 10:16] LABS: PARTIAL THROMBOPLASTIN TIME 34.2 SEC (26.3-35.5)
[2024-12-02 10:20] LABS: ALBUMIN 2.8 g/dL (3.5-5.0); BILIRUBIN,TOTAL 0.6 mg/dL (0.2-1.0); CREATININE 1.2 mg/dL (0.5-1.0); POTASSIUM 4.8 mmol/L (3.5-5.1); TOTAL PROTEIN, SERUM 7.7 g/dL (6.0-8.3)
--- NOTE | 2024-12-02 11:14 | HMCIMG ---
Ascites SCAN History: Abdominal distention FINDINGS: There is a minimal amount of ascitic fluid. It is not enough for ultrasound-guided paracentesis. IMPRESSION: Minimal ascites, not enough for ultrasound-guided paracentesis.
== END | disposition home or self-care (01) ==
LOC: RAH 09:18
PROVIDERS: ATTEND Internal Medicine Gastroenterology
DX: R14.0 Abdominal distension (gaseous) (principal); R18.8 Other ascites; Z79.899 Other long term (current) drug therapy
CPT/HCPCS: 36415; 76705; 80053; 85025; 85610; 85730

== ENCOUNTER → 2024-12-16 | Outpatient (CLI) | payer OTHER ==
--- NOTE | 2024-12-16 10:55 | NUR ---
U/S GD PARACENTESIS TOLERATED PROCEDURE. PERFORM BY DR Michael GILLIAM. PUNCTURE SITE TO RLQ. 2.4 LITERS REMOVED AT SENT TO LAB. END OF PROCEDURE 1035. DRESSING DRY AND INTACT. NO BLEEDING NOTED. DISCHARGE INSTRUCTIONS GIVEN. VERBALIZED UNDERSTANDING. DISCHARGE VIA AMBULATORY WITH SISTER. DENIES PAIN. A&O.
--- NOTE | 2024-12-16 13:07 | HMCIMG ---
US ABDOMINAL PARACENTESIS IR HISTORY: Ascites COMPARISON: None TECHNIQUE: Informed consent was obtained. Risks and benefits were explained to the patient. A timeout was performed. Patient was prepped and draped in a sterile fashion. Local anesthetics was given as required. Under ultrasound guidance, ascites fluid was localized. Ultrasound guidance paracentesis was performed. FINDINGS: 2.4 L of yellowish fluid was aspirated. Less than 2 cc blood loss is noted. Patient tolerated procedure without complication. Patient left the department in good condition. IMPRESSION: 1. Uncomplicated ultrasound guidance paracentesis.
[2024-12-16 13:55] LABS: BODY FLUID RBC 2364 /cu. mm.; BODY FLUID WBC 463 /cu. mm.
[2024-12-16 13:58] LABS: SPECIMENTYPE,BODY FLUID ASCITES
[2024-12-16 13:59] LABS: APPEARANCE BODY FLUID TURBID (CLEAR); COLOR,BODY FLUID ORANGE (LT YELLOW); TOTAL VOLUME,BODY FLUID 2400 mL
[2024-12-16 14:08] LABS: BF LYMPHOCYTE 61 %; BF MACROPHAGE 7; BF MESOTHELIAL 13 %; BF MONOCYTE 7 %; BF TOTAL CELLS COUNTED 100
== END ==
LOC: RAH 09:17
PROVIDERS: ATTEND Internal Medicine Gastroenterology
DX: R18.8 Other ascites (principal); K74.60 Unspecified cirrhosis of liver; K65.2 Spontaneous bacterial peritonitis; K76.9 Liver disease, unspecified; K57.30 Diverticulosis of large intestine without perforation or abscess without bleeding; E78.5 Hyperlipidemia, unspecified; R10.12 Left upper quadrant pain; I85.00 Esophageal varices without bleeding; E11.22 Type 2 diabetes mellitus with diabetic chronic kidney disease; I13.0 Hypertensive heart and chronic kidney disease with heart failure and stage 1 through stage 4 chronic kidney disease, or unspecified chronic kidney disease; N18.9 Chronic kidney disease, unspecified; I50.9 Heart failure, unspecified; I25.10 Atherosclerotic heart disease of native coronary artery without angina pectoris; Z95.0 Presence of cardiac pacemaker; Z86.0100 Personal history of colon polyps, unspecified; Z86.2 Personal history of diseases of the blood and blood-forming organs and certain disorders involving the immune mechanism; Z79.02 Long term (current) use of antithrombotics/antiplatelets; Z80.0 Family history of malignant neoplasm of digestive organs; Z79.899 Other long term (current) drug therapy; Z79.82 Long term (current) use of aspirin; Z90.710 Acquired absence of both cervix and uterus; Z98.49 Cataract extraction status, unspecified eye; Z90.49 Acquired absence of other specified parts of digestive tract; Z90.89 Acquired absence of other organs; Z95.5 Presence of coronary angioplasty implant and graft; Z87.891 Personal history of nicotine dependence
CPT/HCPCS: 49083; 89051; C1729

== ENCOUNTER → 2024-12-30 | Outpatient (CLI) | payer OTHER ==
--- NOTE | 2024-12-30 09:50 | NUR ---
U/S GD PARACENTESIS CANCELLED U/S PERFORMED BY Carlos JIMENEZ RDMS. IMAGES REVIEWED BY DR Mimi AYALA. PER DR AYALA NOT ENOUGH FLUID TO SAFELY PERFORM PARACENTESIS. PT VERBALIZED UNDERSTANDING. DISCHARGE VIA AMBULATORY WITH SISTER. A&O. DENIES PAIN.
== END | disposition home or self-care (01) ==
LOC: RAH 08:52
PROVIDERS: ATTEND Internal Medicine Gastroenterology
DX: R18.8 Other ascites (principal)
CPT/HCPCS: 76705

== ENCOUNTER → 2025-01-14 | Outpatient (CLI) | payer OTHER ==
[~2025-01-14] MED LIST changes: +ALBUMIN HUMAN 25% 200 ML IV ONE
[2025-01-14 09:34] LABS: BASOPHILS # (AUTO) 0.01 K/uL (0.00-0.20); BASOPHILS % (AUTO) 0.2 % (0.0-5.0); EOSINOPHILS # (AUTO) 0.05 K/uL (0.00-0.70); EOSINOPHILS % (AUTO) 0.9 % (0.0-8.0); HEMATOCRIT 31.6 % (36-48); IMMATURE GRANULOCYTE ABSOLUTE 0.02 K/uL (0-1); LYMPHOCYTES # (AUTO) 0.7 K/uL (1.0-4.8); LYMPHOCYTES % (AUTO) 12.4 % (21.0-51.0); MEAN CORPUSCULAR HEMOGLOBIN 30.7 pg (27.0-33.0); MONOCYTES # (AUTO) 0.4 K/uL (0.1-1.0); MONOCYTES % (AUTO) 7.6 % (3.0-13.0); NEUTROPHILS # (AUTO) 4.4 K/uL (1.8-7.7); NEUTROPHILS % (AUTO) 78.5 % (40.0-77.0); PLATELET COUNT (AUTO) 151 K/uL (130-400); RED BLOOD CELL COUNT(AUTO) 3.29 MIL/uL (4.00-5.50); RED CELL DISTRIBUTION WIDTH 15.6 % (11.0-15.5); WHITE BLOOD COUNT (AUTO) 5.7 K/uL (4.8-10.8)
[2025-01-14 09:46] LABS: INR 1.2 (0.85-1.15); PROTHROMBIN TIME 12.5 SEC (9.6-11.6)
[2025-01-14 09:47] LABS: ALBUMIN 2.9 g/dL (3.5-5.0); CREATININE 1.5 mg/dL (0.5-1.0); PARTIAL THROMBOPLASTIN TIME 32.1 SEC (26.3-35.5); TOTAL PROTEIN, SERUM 7.4 g/dL (6.0-8.3)
--- NOTE | 2025-01-14 10:40 | NUR ---
U/S GD PARACENTESIS TOLERATED PROCEDURE. PERFORMED BY DR Mimi AYALA. PUNCTURE SITE TO LLQ. 8.5 LITERS OF YELLOW CLOUDY ASCITES FLUID REMOVED AND SENT TO LAB. ALBUMIN 25% 50 GRAMS GIVEN IV. END OF PROCEDURE AT 1020. NO BLEEDING NOTED. DRESSING DRY AND INTACT. DISCHARGE INSTRUCTIONS GIVEN. VERBALIZED UNDERSTANDING. DISCHARGE VIA WHEELCHAIR. DENIES PAIN. A&O.
--- NOTE | 2025-01-14 12:34 | HMCIMG ---
ULTRASOUND GUIDED PARACENTESIS: INDICATION: Ascites TECHNIQUE: Informed consent was obtained. Timeout performed. All elements of maximal sterile barrier technique, including hand hygiene and cutaneous antisepsis were used. Patient was placed supine. Left upper quadrant was prepped and draped in sterile fashion. Local anesthesia was applied. Then, under ultrasound guidance, a 5F centesis needle was advanced through the abdominal wall and into a pocket of fluid in the peritoneum. It yielded 8.5 L of fluid. The catheter was removed and sterile dressing applied. Blood pressure monitoring was performed during the procedure. Complications: None Blood loss: <5 mL. IMPRESSION: Successful ultrasound guided paracentesis.
[2025-01-14 13:03] LABS: APPEARANCE BODY FLUID SLIGHTLY CLOUDY (CLEAR); SPECIMENTYPE,BODY FLUID ASCITES
[2025-01-14 13:04] LABS: COLOR,BODY FLUID YELLOW (LT YELLOW); TOTAL VOLUME,BODY FLUID 8500 mL
[2025-01-14 13:26] LABS: BODY FLUID RBC 203 /cu. mm.; BODY FLUID WBC 743 /cu. mm.
[2025-01-14 14:05] LABS: BF LYMPHOCYTE 57 %; BF MACROPHAGE 10; BF MESOTHELIAL 4 %; BF MONOCYTE 9 %; BF TOTAL CELLS COUNTED 100
== END ==
LOC: RAH 09:08
PROVIDERS: ATTEND Internal Medicine Gastroenterology
DX: R18.8 Other ascites (principal); K74.60 Unspecified cirrhosis of liver; K29.50 Unspecified chronic gastritis without bleeding; K65.2 Spontaneous bacterial peritonitis; K76.9 Liver disease, unspecified; I85.00 Esophageal varices without bleeding; K57.30 Diverticulosis of large intestine without perforation or abscess without bleeding; E78.5 Hyperlipidemia, unspecified; E11.22 Type 2 diabetes mellitus with diabetic chronic kidney disease; I13.0 Hypertensive heart and chronic kidney disease with heart failure and stage 1 through stage 4 chronic kidney disease, or unspecified chronic kidney disease; N18.9 Chronic kidney disease, unspecified; I50.9 Heart failure, unspecified; M19.90 Unspecified osteoarthritis, unspecified site; I25.10 Atherosclerotic heart disease of native coronary artery without angina pectoris; R10.12 Left upper quadrant pain; Z95.0 Presence of cardiac pacemaker; Z86.0100 Personal history of colon polyps, unspecified; Z79.02 Long term (current) use of antithrombotics/antiplatelets; Z80.0 Family history of malignant neoplasm of digestive organs; Z86.2 Personal history of diseases of the blood and blood-forming organs and certain disorders involving the immune mechanism; Z79.899 Other long term (current) drug therapy; Z79.82 Long term (current) use of aspirin
CPT/HCPCS: 49083; 80053; 85025; 89051; 85610; 85730; 36415; P9046; C1729; 96365

== ENCOUNTER → 2025-01-27 | Outpatient (CLI) | payer OTHER ==
[~2025-01-27] MED LIST changes: -ALBUMIN HUMAN 25% 200 ML IV ONE
--- NOTE | 2025-01-27 10:50 | NUR ---
U/S GD PARACENTESIS PROCEDURE PERFORMED BY DR AYALA. PUNCTURE SITE LLQ AND PATIENT TOLERATED PROCEDURE WELL. TOTAL REMOVED 3.7 LITERS OF YELLOW CLOUDY ASCITES FLUID. SPECIMEN SENT TO LAB. END OF PROCEDURE AT 1030. CATHETER REMOVED AND DRESSING APPLIED. NO BLEEDING NOTED. DISCHARGE INSTRUCTIONS GIVEN TO PATIENT AND VERBALIZED UNDERSTANDING. DISCHARGED VIA WHEELCHAIR. AAO X3 WITH NO C/O PAIN.
[2025-01-27 12:51] LABS: APPEARANCE BODY FLUID SLIGHTLY CLOUDY (CLEAR); COLOR,BODY FLUID YELLOW (LT YELLOW); SPECIMENTYPE,BODY FLUID ASCITES
--- NOTE | 2025-01-27 13:03 | HMCIMG ---
ULTRASOUND GUIDED PARACENTESIS: INDICATION: Ascites TECHNIQUE: Informed consent was obtained. Timeout performed. All elements of maximal sterile barrier technique, including hand hygiene and cutaneous antisepsis were used. Patient was placed supine. Right lower quadrant was prepped and draped in sterile fashion. Local anesthesia was applied. Then, under ultrasound guidance, a 5F centesis needle was advanced through the abdominal wall and into a pocket of fluid in the peritoneum. It yielded 3.7 L of fluid. The catheter was removed and sterile dressing applied. Blood pressure monitoring was performed during the procedure. Complications: None Blood loss: <5 mL. IMPRESSION: Successful ultrasound guided paracentesis.
[2025-01-27 13:19] LABS: TOTAL VOLUME,BODY FLUID 3700 mL
[2025-01-27 13:21] LABS: BODY FLUID RBC 2246 /cu. mm.; BODY FLUID WBC 366 /cu. mm.
[2025-01-27 13:49] LABS: BF BASOPHIL 1 %; BF LYMPHOCYTE 60 %; BF MESOTHELIAL 15 %; BF MONOCYTE 8 %; BF TOTAL CELLS COUNTED 100
== END | disposition home or self-care (01) ==
LOC: RAH 09:35
PROVIDERS: ATTEND Internal Medicine Gastroenterology
DX: R18.8 Other ascites (principal); K65.2 Spontaneous bacterial peritonitis; K74.60 Unspecified cirrhosis of liver; I85.10 Secondary esophageal varices without bleeding; R10.12 Left upper quadrant pain; K57.30 Diverticulosis of large intestine without perforation or abscess without bleeding; I25.10 Atherosclerotic heart disease of native coronary artery without angina pectoris; I13.0 Hypertensive heart and chronic kidney disease with heart failure and stage 1 through stage 4 chronic kidney disease, or unspecified chronic kidney disease; I50.89 Other heart failure; E11.22 Type 2 diabetes mellitus with diabetic chronic kidney disease; E78.5 Hyperlipidemia, unspecified; M19.90 Unspecified osteoarthritis, unspecified site; N18.9 Chronic kidney disease, unspecified; Z79.02 Long term (current) use of antithrombotics/antiplatelets; Z86.0100 Personal history of colon polyps, unspecified; Z80.0 Family history of malignant neoplasm of digestive organs; Z95.0 Presence of cardiac pacemaker; Z90.710 Acquired absence of both cervix and uterus; Z90.49 Acquired absence of other specified parts of digestive tract; Z90.89 Acquired absence of other organs; Z95.5 Presence of coronary angioplasty implant and graft; Z79.82 Long term (current) use of aspirin; Z79.899 Other long term (current) drug therapy
CPT/HCPCS: 49083; 89051; C1729

== ENCOUNTER → 2025-02-10 | Outpatient (CLI) | payer OTHER ==
[~2025-02-10] MED LIST changes: +ALBUMIN HUMAN 25% 200 ML IV ONE
--- NOTE | 2025-02-10 10:50 | NUR ---
U/S GD PARACENTESIS PROCEDURE PERFORMED BY DR Michael GILLIAM. PUNCTURE SITE LLQ AND PATIENT TOLERATED PROCEDURE WELL. TOTAL REMOVED 6.5 LITERS OF YELLOW CLOUDY ASCITES FLUID. ALBUMIN 25% 50 GRAMS IV GIVEN DURING PROCEDURE. SPECIMEN SENT TO LAB. END OF PROCEDURE AT 1030. CATHETER REMOVED AND DRESSING APPLIED. NO BLEEDING NOTED. DISCHARGE INSTRUCTIONS GIVEN TO PATIENT AND VERBALIZED UNDERSTANDING. DISCHARGED VIA WHEELCHAIR. AAO X3 WITH NO C/O PAIN.
--- NOTE | 2025-02-10 14:14 | HMCIMG ---
The procedure US ABDOMINAL PARACENTESIS IR HISTORY: No additional history given. COMPARISON: None TECHNIQUE: Informed consent was obtained. Risks and benefits were explained to the patient. A timeout was performed. Patient was prepped and draped in a sterile fashion. Local anesthetics was given as required. Under ultrasound guidance, ascites was localized. Ultrasound-guided paracentesis was performed. FINDINGS: 6.5 L of yellowish fluid was aspirated. Less than 2 cc blood loss is noted. Patient tolerated procedure without complication. Patient left the department in good condition. IMPRESSION: 1. Uncomplicated ultrasound-guided paracentesis.
[2025-02-10] MEDS: ALBUMIN HUMAN 25% 200 ML IV ONE (14:32)
[2025-02-10 16:41] LABS: BODY FLUID RBC 4701 /cu. mm.; BODY FLUID WBC 250 /cu. mm.
[2025-02-10 17:05] LABS: SPECIMENTYPE,BODY FLUID ASCITES
[2025-02-10 17:06] LABS: APPEARANCE BODY FLUID CLOUDY (CLEAR); COLOR,BODY FLUID YELLOW (LT YELLOW); TOTAL VOLUME,BODY FLUID 6500 mL
[2025-02-10 17:40] LABS: BF EOSINOPHIL 2 %; BF LYMPHOCYTE 45 %; BF MACROPHAGE 15; BF MESOTHELIAL 10 %; BF MONOCYTE 4 %; BF TOTAL CELLS COUNTED 100
== END | disposition home or self-care (01) ==
LOC: RAH 09:19
PROVIDERS: ATTEND Internal Medicine Gastroenterology
DX: R18.8 Other ascites (principal); K74.60 Unspecified cirrhosis of liver; K65.2 Spontaneous bacterial peritonitis; I85.10 Secondary esophageal varices without bleeding; K57.30 Diverticulosis of large intestine without perforation or abscess without bleeding; Z86.0100 Personal history of colon polyps, unspecified; Z80.0 Family history of malignant neoplasm of digestive organs; I25.10 Atherosclerotic heart disease of native coronary artery without angina pectoris; I13.0 Hypertensive heart and chronic kidney disease with heart failure and stage 1 through stage 4 chronic kidney disease, or unspecified chronic kidney disease; E11.22 Type 2 diabetes mellitus with diabetic chronic kidney disease; N18.9 Chronic kidney disease, unspecified; D63.1 Anemia in chronic kidney disease; Z95.0 Presence of cardiac pacemaker; I50.89 Other heart failure; M19.90 Unspecified osteoarthritis, unspecified site; Z90.710 Acquired absence of both cervix and uterus; Z90.49 Acquired absence of other specified parts of digestive tract; Z95.5 Presence of coronary angioplasty implant and graft; Z90.89 Acquired absence of other organs; Z79.82 Long term (current) use of aspirin; Z79.899 Other long term (current) drug therapy
CPT/HCPCS: 49083; 89051; P9046; C1729; 96365

== ENCOUNTER → 2025-02-28 | Outpatient (CLI) | payer OTHER ==
[~2025-02-28] MED LIST changes: -ALBUMIN HUMAN 25% 200 ML IV ONE
== END | disposition home or self-care (01) ==
LOC: RAH 13:56
PROVIDERS: ATTEND Family Medicine
DX: Z12.31 Encounter for screening mammogram for malignant neoplasm of breast (principal)
CPT/HCPCS: 77067

== ENCOUNTER → 2025-03-24 | Outpatient (CLI) | payer OTHER ==
--- NOTE | 2025-03-24 11:10 | NUR ---
U/S GD PARACENTESIS PROCEDURE PERFORMED BY DR DIETZ. PUNCTURE SITE LLQ AND PATIENT TOLERATED PROCEDURE WELL. TOTAL REMOVED 5.0 LITERS OF YELLOW CLOUDY ASCITES FLUID. ALBUMIN 25% 50 GRAMS IV GIVEN DURING PROCEDURE. SPECIMEN SENT TO LAB. END OF PROCEDURE AT 1050. CATHETER REMOVED AND DRESSING APPLIED. NO BLEEDING NOTED. DISCHARGE INSTRUCTIONS GIVEN TO PATIENT AND VERBALIZED UNDERSTANDING. DISCHARGED VIA WHEELCHAIR. AAO X3 WITH NO C/O PAIN.
[2025-03-24 12:54] LABS: APPEARANCE BODY FLUID CLOUDY (CLEAR); COLOR,BODY FLUID ORANGE (LT YELLOW); SPECIMENTYPE,BODY FLUID ASCITES; TOTAL VOLUME,BODY FLUID 5000 mL
[2025-03-24 13:50] LABS: BODY FLUID RBC 2688 /cu. mm.; BODY FLUID WBC 767 /cu. mm.
[2025-03-24] MEDS: ALBUMIN HUMAN 25% 200 ML IV ONE (14:24)
[2025-03-24 17:32] LABS: BF LYMPHOCYTE 25 %; BF MACROPHAGE 52; BF NEUTROPHIL 19.0 %; BF OTHER CELLS 4; BF TOTAL CELLS COUNTED 100
--- NOTE | 2025-03-25 07:56 | HMCIMG ---
US ABDOMINAL PARACENTESIS IR REASON: ASCITES TECHNIQUE: Paracentesis was performed with ultrasound guidance. The puncture site was selected in the Right lower quadrant and overlying skin prepped and draped in a sterile fashion. 1% Xylocaine infiltration was performed. Catheter was placed in the fluid using trocar technique. 5.0 L were removed. Fluid sample was submitted for laboratory evaluation. The patient showed no evidence of complication during the procedure. Patient tolerated procedure well IMPRESSION: 1. Ultrasound-guided paracentesis.
== END | disposition home or self-care (01) ==
LOC: RAH 09:20
PROVIDERS: ATTEND Internal Medicine Gastroenterology
DX: R18.8 Other ascites (principal)
CPT/HCPCS: 49083; 89051; P9046; C1729; 96365

== ENCOUNTER → 2025-04-07 | Outpatient (CLI) | payer OTHER ==
[2025-04-07 10:03] LABS: IMMATURE GRANULOCYTE ABSOLUTE 0.01 K/uL (0-1); NUCLEATED RED BLOOD CELLS 0.0 % (0.0-0.19); PLATELET COUNT (AUTO) 131 K/uL (130-400); RED BLOOD CELL COUNT(AUTO) 3.18 MIL/uL (4.00-5.50); RED CELL DISTRIBUTION WIDTH 14.2 % (11.0-15.5); WHITE BLOOD COUNT (AUTO) 5.0 K/uL (4.8-10.8)
[2025-04-07 10:17] LABS: ASPARTATE AMINOTRANSFERASE 16.0 U/L (10-37); CREATININE 1.8 mg/dL (0.5-1.0); GLOMERULAR FILTR. RATE CALC 29.0 mL/min (>90); GLUCOSE,RANDOM 160.0 mg/dL (70-105); SODIUM SERUM 142.0 mmol/L (136-145); TOTAL PROTEIN, SERUM 6.9 g/dL (6.0-8.3); UREA NITROGEN, BLOOD 55.0 mg/dL (7-18)
[2025-04-07 10:21] LABS: INR 1.24 (0.85-1.15)
[2025-04-07] MEDS: ALBUMIN HUMAN 25% 200 ML IV ONE (10:29)
--- NOTE | 2025-04-07 10:45 | NUR ---
ULTRASOUND GUIDED PARACENTESIS PROCEDURE PERFORMED BY DR. DALE DIETZ. PUNCTURE SITE TO LLQ AND PATIENT TOLERATED PROCEDURE WELL. TOTAL REMOVED 6.5 LITERS OF CLEAR, YELLOW ASCITES FLUID. ALBUMIN 25% 50 GRAMS IV GIVEN DURING PROCEDURE. SPECIMEN SENT TO LAB. END OF PROCEDURE AT 1030. CATHETER REMOVED AND DRESSING APPLIED- NO BLEEDING NOTED. DISCHARGE INSTRUCTIONS GIVEN TO PATIENT AND VERBALIZED UNDERSTANDING. DISCHARGED VIA WHEELCHAIR ALERT AND ORIENTED WITH NO C/O PAIN.
[2025-04-07 14:13] LABS: BODY FLUID RBC 3336 /cu. mm.; BODY FLUID WBC 292 /cu. mm.
[2025-04-07 14:15] LABS: APPEARANCE BODY FLUID CLOUDY (CLEAR); COLOR,BODY FLUID ORANGE (LT YELLOW); SPECIMENTYPE,BODY FLUID ASCITES; TOTAL VOLUME,BODY FLUID 6500 mL
[2025-04-07 15:17] LABS: BF LYMPHOCYTE 48 %; BF MACROPHAGE 22; BF MONOCYTE 2 %; BF NEUTROPHIL 27.0 %; BF OTHER CELLS 1; BF TOTAL CELLS COUNTED 100
--- NOTE | 2025-04-08 08:14 | HMCIMG ---
US ABDOMINAL PARACENTESIS IR REASON: ASCITES TECHNIQUE: Paracentesis was performed with ultrasound guidance. The puncture site was selected in the Right lower quadrant and overlying skin prepped and draped in a sterile fashion. 1% Xylocaine infiltration was performed. Catheter was placed in the fluid using trocar technique. 6.5 L were removed. Fluid sample was submitted for laboratory evaluation. The patient showed no evidence of complication during the procedure. Patient tolerated procedure well. IMPRESSION: 1. Ultrasound-guided paracentesis.
== END | disposition home or self-care (01) ==
LOC: RAH 09:19
PROVIDERS: ATTEND Internal Medicine Gastroenterology
DX: R18.8 Other ascites (principal); K74.60 Unspecified cirrhosis of liver; I85.10 Secondary esophageal varices without bleeding; K65.2 Spontaneous bacterial peritonitis; K57.30 Diverticulosis of large intestine without perforation or abscess without bleeding; I25.10 Atherosclerotic heart disease of native coronary artery without angina pectoris; I12.9 Hypertensive chronic kidney disease with stage 1 through stage 4 chronic kidney disease, or unspecified chronic kidney disease; E11.22 Type 2 diabetes mellitus with diabetic chronic kidney disease; N18.9 Chronic kidney disease, unspecified; I50.89 Other heart failure; R97.1 Elevated cancer antigen 125 [CA 125]; E78.5 Hyperlipidemia, unspecified; M19.90 Unspecified osteoarthritis, unspecified site; Z90.49 Acquired absence of other specified parts of digestive tract; Z86.0100 Personal history of colon polyps, unspecified; D63.1 Anemia in chronic kidney disease; Z80.0 Family history of malignant neoplasm of digestive organs; Z79.02 Long term (current) use of antithrombotics/antiplatelets; Z95.0 Presence of cardiac pacemaker; Z95.5 Presence of coronary angioplasty implant and graft; Z90.89 Acquired absence of other organs; Z90.710 Acquired absence of both cervix and uterus; Z98.890 Other specified postprocedural states; Z79.82 Long term (current) use of aspirin; Z79.899 Other long term (current) drug therapy
CPT/HCPCS: 49083; 80053; 85025; 89051; 85610; 85730; 36415; P9046; C1729

== ENCOUNTER 2025-04-15 06:20 | Day surgery (SDC) | payer OTHER ==
[~2025-04-15] VITALS: Ht 157.5 cm; Wt 106.6 kg
[2025-04-15] VITALS (12 sets, daily range): BP systolic 128–170; BP diastolic 41–89; PULSE 60–72; RESP 15–16; TEMP 96.9–97.9
[2025-04-15] MEDS: 0.9%NACL 1000ML 1,000 ML IV ONE (06:45)
[2025-04-15] MEDS: DEXTROSE 50%-WATER 50 ML DISP.SYRIN IV ONE (06:49)
[2025-04-15] MEDS ORDERED: FURO40TA5 PO (07:04)
== END 2025-04-15 09:45 | disposition home or self-care (01) ==
LOC: DAH 06:20 → ENDO 06:20
PROVIDERS: ATTEND Internal Medicine
DX: K74.60 Unspecified cirrhosis of liver (principal); K31.89 Other diseases of stomach and duodenum; K76.6 Portal hypertension; I85.10 Secondary esophageal varices without bleeding; K29.70 Gastritis, unspecified, without bleeding; I25.10 Atherosclerotic heart disease of native coronary artery without angina pectoris; E66.01 Morbid (severe) obesity due to excess calories; Z86.0100 Personal history of colon polyps, unspecified; Z80.0 Family history of malignant neoplasm of digestive organs; E78.5 Hyperlipidemia, unspecified; I13.0 Hypertensive heart and chronic kidney disease with heart failure and stage 1 through stage 4 chronic kidney disease, or unspecified chronic kidney disease; R18.8 Other ascites; K65.2 Spontaneous bacterial peritonitis; K57.30 Diverticulosis of large intestine without perforation or abscess without bleeding; D63.1 Anemia in chronic kidney disease; R97.1 Elevated cancer antigen 125 [CA 125]; I50.89 Other heart failure; E11.22 Type 2 diabetes mellitus with diabetic chronic kidney disease; N18.9 Chronic kidney disease, unspecified; Z90.710 Acquired absence of both cervix and uterus; Z79.02 Long term (current) use of antithrombotics/antiplatelets; Z90.49 Acquired absence of other specified parts of digestive tract; Z68.42 Body mass index [BMI] 45.0-49.9, adult; Z95.5 Presence of coronary angioplasty implant and graft; Z90.89 Acquired absence of other organs; Z98.890 Other specified postprocedural states; Z95.0 Presence of cardiac pacemaker; Z79.82 Long term (current) use of aspirin; Z79.899 Other long term (current) drug therapy
CPT/HCPCS: 43239; 82948 ×3; J7030; J7070; J2704; A4620; A4215 ×2; A4223; A4222; A4221; A4663; A4606; J3490

== ENCOUNTER → 2025-04-22 | Outpatient (CLI) | payer OTHER ==
[~2025-04-22] MED LIST changes: +ALBUMIN HUMAN 25% 200 ML IV ONE; -DOCU-116 PO; +LIDOCAINE HCL 1% 20 ML VIAL MISC ONE; -MULT-1367 PO; -POLY17PO4 PO; -VITAMIN D PO
--- NOTE | 2025-04-22 11:20 | NUR ---
ULTRASOUND GUIDED PARACENTESIS PROCEDURE PERFORMED BY DR. DALE DIETZ. PUNCTURE SITE LLQ AND PATIENT TOLERATED PROCEDURE WELL. TOTAL REMOVED 4.8 LITERS OF CLOUDY, FLORINA ASCITES FLUID. ALBUMIN 25% 50 GRAMS IV GIVEN DURING PROCEDURE. SPECIMEN SENT TO LAB. END OF PROCEDURE AT 1105. CATHETER REMOVED AND DRESSING APPLIED- NO BLEEDING NOTED. DISCHARGE INSTRUCTIONS GIVEN TO PATIENT AND VERBALIZED UNDERSTANDING. DISCHARGED VIA WHEELCHAIR. PATIENT IS ALERT WITH NO C/O PAIN.
--- NOTE | 2025-04-22 12:20 | HMCIMG ---
US ABDOMINAL PARACENTESIS IR REASON: ASCITES TECHNIQUE: Paracentesis was performed with ultrasound guidance. The puncture site was selected in the Left lower quadrant and overlying skin prepped and draped in a sterile fashion. 1% Xylocaine infiltration was performed. Catheter was placed in the fluid using trocar technique. 4.8 L were removed. Fluid sample was submitted for laboratory evaluation. The patient showed no evidence of complication during the procedure. Patient tolerated procedure well. IMPRESSION: 1. Ultrasound-guided paracentesis.
[2025-04-22 18:10] LABS: BODY FLUID RBC 2281 /cu. mm.; BODY FLUID WBC 221 /cu. mm.
[2025-04-22 19:21] LABS: APPEARANCE BODY FLUID SLIGHTLY CLOUDY (CLEAR); COLOR,BODY FLUID YELLOW (LT YELLOW); SPECIMENTYPE,BODY FLUID ASCITES; TOTAL VOLUME,BODY FLUID 4000 mL
[2025-04-22 19:35] LABS: BF LYMPHOCYTE 69 %; BF MESOTHELIAL 5 %; BF MONOCYTE 2 %; BF NEUTROPHIL 24.0 %; BF TOTAL CELLS COUNTED 100
== END | disposition home or self-care (01) ==
LOC: RAH 09:15
PROVIDERS: ATTEND Internal Medicine Gastroenterology
DX: R18.8 Other ascites (principal); K74.60 Unspecified cirrhosis of liver; I85.10 Secondary esophageal varices without bleeding; K65.2 Spontaneous bacterial peritonitis; K57.30 Diverticulosis of large intestine without perforation or abscess without bleeding; I25.10 Atherosclerotic heart disease of native coronary artery without angina pectoris; I13.0 Hypertensive heart and chronic kidney disease with heart failure and stage 1 through stage 4 chronic kidney disease, or unspecified chronic kidney disease; E11.22 Type 2 diabetes mellitus with diabetic chronic kidney disease; I50.89 Other heart failure; N18.9 Chronic kidney disease, unspecified; D63.1 Anemia in chronic kidney disease; R97.1 Elevated cancer antigen 125 [CA 125]; E78.5 Hyperlipidemia, unspecified; M19.90 Unspecified osteoarthritis, unspecified site; Z80.0 Family history of malignant neoplasm of digestive organs; Z90.710 Acquired absence of both cervix and uterus; Z90.49 Acquired absence of other specified parts of digestive tract; Z95.5 Presence of coronary angioplasty implant and graft; Z79.82 Long term (current) use of aspirin; Z86.0100 Personal history of colon polyps, unspecified; Z79.02 Long term (current) use of antithrombotics/antiplatelets; Z95.0 Presence of cardiac pacemaker; Z79.899 Other long term (current) drug therapy
CPT/HCPCS: 49083; 89051; P9046; C1729

== ENCOUNTER → 2025-05-05 | Outpatient (CLI) | payer OTHER ==
[~2025-05-05] MED LIST changes: -ALBUMIN HUMAN 25% 200 ML IV ONE; -LIDOCAINE HCL 1% 20 ML VIAL MISC ONE
--- NOTE | 2025-05-05 11:00 | NUR ---
RE: PARACENTESIS IMAGES TAKEN AND REVIEWED BY DR Mirella DIETZ. NOT ENOUGH FLUID SEEN FOR PROCEDURE TO BE DONE SAFELY. PROCEDURE CANCELLED. PROCEDURE OUTCOME REPORTED PATIENT AND VERBALIZED UNDERSTANDING.
--- NOTE | 2025-05-06 06:29 | HMCIMG ---
EXAMINATION: ULTRASOUND OF THE ABDOMEN (LIMITED). CLINICAL HISTORY: To evaluate for ascites. COMPARISON: Abdominal paracentesis dated 04/22/2025. TECHNIQUE: Real-time grayscale ultrasound images of the abdomen. FINDINGS: There is small free fluid in the left upper and lower quadrants. IMPRESSION: Small ascites. /Export
== END | disposition home or self-care (01) ==
LOC: RAH 09:22
PROVIDERS: ATTEND Internal Medicine Gastroenterology
DX: R18.8 Other ascites (principal)
CPT/HCPCS: 76705

== ENCOUNTER → 2025-05-19 | Outpatient (CLI) | payer OTHER ==
--- NOTE | 2025-05-20 06:22 | HMCIMG ---
EXAMINATION: ULTRASOUND OF THE ABDOMEN (LIMITED). CLINICAL HISTORY: Ascites survey. COMPARISON: Ascites survey ultrasound dated 05/05/2025. TECHNIQUE: Real-time grayscale ultrasound images of the abdomen. FINDINGS: There is small free fluid in all the four quadrants. IMPRESSION: Small ascites. /[place]
== END | disposition home or self-care (01) ==
LOC: RAH 09:40
PROVIDERS: ATTEND Internal Medicine Gastroenterology
DX: R18.8 Other ascites (principal)
CPT/HCPCS: 76705

== ENCOUNTER → 2025-06-05 | Outpatient (CLI) | payer OTHER ==
--- NOTE | 2025-06-05 14:20 | NUR ---
ULTRASOUND GUIDED PARACENTESIS PROCEDURE PERFORMED BY DR. DALE DIETZ. PUNCTURE SITE LLQ AND PATIENT TOLERATED PROCEDURE WELL. TOTAL REMOVED 3.7 LITERS OF CLEAR, YELLOW ASCITES FLUID. SPECIMEN SENT TO LAB. END OF PROCEDURE AT 1405. CATHETER REMOVED AND DRESSING APPLIED. NO BLEEDING NOTED. DISCHARGE INSTRUCTIONS GIVEN TO PATIENT AND VERBALIZED UNDERSTANDING. DISCHARGED VIA WHEELCHAIR. AAO X3 WITH NO C/O PAIN.
[2025-06-05 15:28] LABS: APPEARANCE BODY FLUID CLOUDY (CLEAR); COLOR,BODY FLUID ORANGE (LT YELLOW); SPECIMENTYPE,BODY FLUID ASCITES; TOTAL VOLUME,BODY FLUID 3700 mL
[2025-06-05 15:33] LABS: BODY FLUID RBC 4766 /cu. mm.; BODY FLUID WBC 282 /cu. mm.
[2025-06-05 15:52] LABS: BF LYMPHOCYTE 23 %; BF MACROPHAGE 60; BF MESOTHELIAL 1 %; BF MONOCYTE 1 %; BF NEUTROPHIL 13.0 %; BF OTHER CELLS 2; BF TOTAL CELLS COUNTED 100
--- NOTE | 2025-06-09 09:50 | HMCIMG ---
US ABDOMINAL PARACENTESIS IR REASON: ASCITES TECHNIQUE: Paracentesis was performed with ultrasound guidance. The puncture site was selected in the Left lower quadrant and overlying skin prepped and draped in a sterile fashion. 1% Xylocaine infiltration was performed. Catheter was placed in the fluid using trocar technique. 3.7 L were removed. Fluid sample was submitted for laboratory evaluation. The patient showed no evidence of complication during the procedure. Patient tolerated procedure well. IMPRESSION: 1. Ultrasound-guided paracentesis.
== END | disposition home or self-care (01) ==
LOC: RAH 12:30
PROVIDERS: ATTEND Internal Medicine
DX: R18.8 Other ascites (principal); K74.60 Unspecified cirrhosis of liver
CPT/HCPCS: 49083; 89051; C1729

== ENCOUNTER → 2025-08-11 | Outpatient (CLI) | payer OTHER ==
--- NOTE | 2025-08-11 11:20 | NUR ---
U/S GD PARACENTESIS PROCEDURE PERFORMED BY DR Mirella DIETZ. PUNCTURE SITE LLQ AND PATIENT TOLERATED PROCEDURE WELL. TOTAL REMOVED 4.8 LITERS OF YELLOW CLOUDY FLUID. ALBUMIN 25% 50 GRAMS IV GIVEN DURING PROCEDURE. SPECIMEN SENT TO LAB. END OF PROCEDURE AT 1100. CATHETER REMOVED AND DRESSING APPLIED. NO BLEEDING NOTED. DISCHARGE INSTRUCTIONS GIVEN TO PATIENT AND VERBALIZED UNDERSTANDING. DISCHARGED VIA WHEELCHAIR. AAO X3 WITH NO C/O PAIN.
--- NOTE | 2025-08-11 12:14 | HMCIMG ---
US ABDOMINAL PARACENTESIS IR REASON: ASCITES TECHNIQUE: Paracentesis was performed with ultrasound guidance. The puncture site was selected in the Right lower quadrant and overlying skin prepped and draped in a sterile fashion. 1% Xylocaine infiltration was performed. Catheter was placed in the fluid using trocar technique. 4.5 L were removed. Fluid sample was submitted for laboratory evaluation. The patient showed no evidence of complication during the procedure. Patient tolerated procedure well. IMPRESSION: 1. Ultrasound-guided paracentesis.
[2025-08-11 13:33] LABS: APPEARANCE BODY FLUID CLOUDY (CLEAR); COLOR,BODY FLUID YELLOW (LT YELLOW); SPECIMENTYPE,BODY FLUID ASCITES; TOTAL VOLUME,BODY FLUID 4500 mL
[2025-08-11 14:31] LABS: BF LYMPHOCYTE 36 %; BF MACROPHAGE 13; BF MESOTHELIAL 14 %; BF MONOCYTE 17 %; BF NEUTROPHIL 16.0 %; BF OTHER CELLS 4; BF TOTAL CELLS COUNTED 100
[2025-08-11 14:32] LABS: BODY FLUID RBC 3845 /cu. mm.; BODY FLUID WBC 521 /cu. mm.
[2025-08-11] MEDS: ALBUMIN HUMAN 25% 200 ML IV ONE (14:33)
== END | disposition home or self-care (01) ==
LOC: RAH 09:20
PROVIDERS: ATTEND Internal Medicine Gastroenterology
DX: R18.8 Other ascites (principal); K74.60 Unspecified cirrhosis of liver
CPT/HCPCS: 49083; 89051; P9046; C1729